=== PATIENT | female | born 1975 | race Caucasian/White ===

== ENCOUNTER → 2022-04-02 12:45 | Outpatient (BNVA) | payer OTHER, SELFPAY | PROVIDERS: PCP Internal Medicine; Visit Provider Physician Assistant Surgical | DX: Z13.89 Encounter for screening for other disorder (principal) ==

== ENCOUNTER → 2022-04-04 12:49 | Outpatient (BNVA) | payer OTHER, SELFPAY | PROVIDERS: PCP Internal Medicine; Visit Provider Physician Assistant Surgical | DX: E66.9 Obesity, unspecified (principal); E11.9 Type 2 diabetes mellitus without complications; Z68.37 Body mass index [BMI] 37.0-37.9, adult | CPT/HCPCS: 99202 ==

== ENCOUNTER → 2022-05-01 10:02 | Outpatient (BNVA) | payer OTHER, SELFPAY | PROVIDERS: PCP Internal Medicine; Visit Provider Physician Assistant Surgical | DX: E66.9 Obesity, unspecified (principal); Z68.36 Body mass index [BMI] 36.0-36.9, adult | CPT/HCPCS: 99212 ==

== ENCOUNTER → 2022-05-17 11:25 | Outpatient (BNVA) | payer OTHER, SELFPAY | PROVIDERS: PCP Internal Medicine; Visit Provider Dietitian, Registered | DX: E66.9 Obesity, unspecified (principal); Z98.84 Bariatric surgery status; Z71.3 Dietary counseling and surveillance | CPT/HCPCS: 97802 ==

== ENCOUNTER 2022-05-27 09:07 | Outpatient (REF) | payer OTHER, SELFPAY ==
--- NOTE | ~2022-05-27 | US_ITS ---
EXAMINATION: US COMPLETE ABDOMEN WITH LIVER ELASTOGRAPHY CLINICAL INFORMATION: COMPARISON: None. TECHNIQUE: Real-time imaging of the abdominal viscera. Noninvasive ultrasound liver fibrosis assessment is performed using Petrona ElastPQ point quantification shear wave elastography (2D-SWE) with a C5-2 MHz transducer. Multiple elastography samples are obtained. FINDINGS: PANCREAS: Not well visualized due to bowel gas ABDOMINAL AORTA: The proximal abdominal aorta is not well visualized due to bowel gas. The middle, and distal aortic segments are normal in caliber. INFERIOR VENA CAVA: Normal. LIVER: Normal. The liver demonstrates normal size, contour and echogenicity. No focal lesion or intrahepatic biliary duct dilatation. The right lobe measures 15.4 cm in length. The left lobe measures 9.6 cm in length. Portal flow is normal/hepatopedal Shear wave liver elastography median stiffness is 1.2 m/s (reference: normal median stiffness is 1.3 m/s or less). IQR/median stiffness to assess sampling precision is 0.11 (reference: good quality data set is IQR/median stiffness of 0.15 or less). GALLBLADDER: Normal. The gallbladder is physiologically distended without evidence of stones, sludge, polyps, wall thickening or pericholecystic fluid. COMMON BILE DUCT: Normal in caliber measuring 0.3 cm in diameter. RIGHT KIDNEY: Normal. No hydronephrosis. No renal calculi or focal parenchymal lesions. The kidney measures 10.5 cm in maximum dimension. LEFT KIDNEY: Normal. No hydronephrosis. No renal calculi or focal parenchymal lesions. The kidney measures 10.5 cm in maximum dimension. SPLEEN: Normal. The spleen measures 8.4 cm in maximum dimension. FREE FLUID: None. US/US abdomen comp w elastography IMPRESSION: 1. Impression: Normal-appearing liver. Limited visualization of the pancreas and proximal abdominal aorta. Otherwise unremarkable exam. 2. Liver elastography: Adequate liver sampling. Normal liver stiffness. REFERENCE: Society of Radiologists in Ultrasound Liver Stiffness Thresholds (2020): LIVER STIFFNESS THRESHOLDS: *Liver Stiffness equal or less than 1.3 m/s: High probability of being normal. *Liver Stiffness less than 1.7 m/s: In the absence of other known clinical signs, rules out compensated advanced chronic liver disease. *Liver Stiffness 1.7-2.1 m/s: Suggestive of compensated advanced chronic liver disease but need further test for confirmation. *Liver Stiffness over 2.1 m/s: Rules in compensated advanced chronic liver disease. *Liver Stiffness over 2.4 m/s: Suggestive of clinically significant portal hypertension. QUALITY OF DATA SET: *IQR/Median value equal or less than 0.15 implies a quality data set. *IQR/Median value over 0.15 implies a poor quality data set. SIGNIFICANT CHANGE FROM PRIOR EXAM: Significant change if liver stiffness measurement is 10% or greater from prior exam. OTHER CONSIDERATIONS: The stage of liver fibrosis may be overestimated in the setting of acute hepatitis, liver inflammation, elevated liver function tests, hepatic vascular congestion, obstructive cholestasis, non-fasting state, and infiltrative diseases such as amyloidosis and lymphoma. In some patients with NAFLD, the liver stiffness thresholds for compensated advanced chronic liver disease may be lower. In causes other than viral hepatitis and NAFLD, liver stiffness thresholds are not well established.
== END 2022-05-27 09:08 | disposition home or self-care (01) ==
LOC: HO.US 09:07
PROVIDERS: Visit Provider Physician Assistant Surgical
DX: Z01.818 Encounter for other preprocedural examination (principal); E66.9 Obesity, unspecified; E11.9 Type 2 diabetes mellitus without complications; K21.9 Gastro-esophageal reflux disease without esophagitis
CPT/HCPCS: 76705; 76981

== ENCOUNTER → 2022-06-26 13:20 | Outpatient (BNVA) | payer OTHER, SELFPAY | PROVIDERS: PCP Internal Medicine; Visit Provider Dietitian, Registered | DX: E66.9 Obesity, unspecified (principal); Z68.35 Body mass index [BMI] 35.0-35.9, adult; Z98.84 Bariatric surgery status; Z71.3 Dietary counseling and surveillance | CPT/HCPCS: 97803 ==

== ENCOUNTER → 2022-07-23 14:22 | Outpatient (BNVA) | payer OTHER, SELFPAY | PROVIDERS: PCP Internal Medicine; Visit Provider Dietitian, Registered | DX: E66.9 Obesity, unspecified (principal) | CPT/HCPCS: 97803 ==

== ENCOUNTER 2022-07-26 09:28 | Outpatient (REF) | payer OTHER, SELFPAY ==
--- NOTE | ~2022-07-26 | XR_ITS ---
EXAMINATION: XR CHEST CLINICAL INFORMATION: Type 2 diabetes mellitus. COMPARISON: None TECHNIQUE: 2 views of the chest were obtained. FINDINGS: No significant abnormality is noted involving the heart, lungs, mediastinum, bony thorax or soft tissues. XR/XR chest 2V IMPRESSION: No acute cardiopulmonary process.
[2022-07-26 09:48] LABS: MANUAL DIFF FLAG NO
[2022-07-26 10:50] LABS: Basophils Percent Auto 0.5 % (0-2); Eosinophils Percent Auto 0.5 % (0-4); Hematocrit 38.6 % (37.0-47.0); Hemoglobin 12.8 g/dl (12.0-16.0); Imm Gran Abs Auto 0.01 X10*3/uL (0.00-0.03); Imm Gran Pct Auto 0.3 % (0.0-0.4); Lymphocytes Absolute Auto 1.2 X10*3/uL (1.2-4.9); Mean Corpuscular HGB Conc 33.2 g/dl (31.0-35.0); Mean Corpuscular Hemoglobin 25.8 pg (27.0-33.0); Mean Corpuscular Volume 77.8 fL (80.0-98.0); Mean Platelet Volume 9.3 fL (9.4-12.3); Monocytes Absolute Auto 0.3 X10*3/uL (0.1-1.2); Monocytes Percent Auto 7.7 % (2-11); Neutrophils Absolute Auto 2.4 x10*3/uL (2.0-8.3); Platelet Count 411 X10*3/uL (160-400); Red Blood Count 4.96 X10*6/uL (4.20-5.50); Red Cell Distribution Width 13.8 % (11.0-16.0); White Blood Count 3.9 X10*3/uL (4.8-10.8)
[2022-07-26 10:59] LABS: Estimated Average Glucose 123 mg/dL; Hemoglobin A1C 142.2697 umol/L; Hemoglobin A1c % 5.9 %
[2022-07-26 11:18] LABS: Alanine Aminotransferase 11 U/L (0-31); Albumin Level 4.1 g/dL (3.5-5.0); Alkaline Phosphatase 72 U/L (39-117); Anion Gap 15 (12-20); Aspartate Amino Transferase 11 U/L (5-31); Bilirubin Total 0.5 mg/dL (0.0-1.0); Blood Urea Nitrogen 13 mg/dL (9-16); C Reactive Protein 0.88 mg/dL (< or = 0.50); Calcium 8.9 mg/dL (8.4-10.2); Carbon Dioxide 23 mmol/L (22-29); Chloride 105 mmol/L (96-108); Cholesterol 180 mg/dL; Estimated Glomerular Filt Rate > 60; Glucose Random 125 mg/dL (60-115); HDL Cholesterol 47 mg/dL; Iron 72 mcg/dL (30-160); LDL Cholesterol Calculated 111 mg/dl; Percent Iron Saturation 19 % (15-50); Potassium 4.5 mmol/L (3.3-5.1); Sodium 138 mmol/L (135-145); Total Iron Binding Capacity 380 mcg/dL (228-428); Total Protein 7.4 g/dL (6.5-8.0); Triglycerides 111 mg/dL; Unsaturated Iron Binding 308 ug/dL
[2022-07-26 11:42] LABS: Ferritin 41 ng/mL (10-250); Insulin 63 uU/mL (2-29); Vitamin D 25-OH Total 25.2 ng/mL (>30)
[2022-07-26 11:49] LABS: Folate 6.7 ng/mL (> or = 4.0); Vitamin B12 334 pg/mL (200-900)
[2022-07-28 13:17] LABS: PTHI 52 pg/mL (16-77)
[2022-07-30 19:06] LABS: Vitamin A 33 mcg/dL (38-98)
[2022-07-31 00:51] LABS: Zinc 62 mcg/dL (60-130)
[2022-08-01 15:17] LABS: Vitamin B1 9 nmol/L (8-30)
== END 2022-07-26 09:29 | disposition home or self-care (01) ==
LOC: HO.LAB 09:28
PROVIDERS: Visit Provider Physician Assistant Surgical
DX: E11.9 Type 2 diabetes mellitus without complications (principal); E66.9 Obesity, unspecified
CPT/HCPCS: 36415; 71046; 80053; 80061; 82306; 82607; 82728; 82746; 83036; 83525; 83540; 83970; 84425; 84443; 84590; 84630; 85025; 86140

== ENCOUNTER 2022-08-07 08:58 | Outpatient (REF) | payer OTHER, SELFPAY ==
--- NOTE | ~2022-08-07 | FL_ITS ---
EXAMINATION: XR FLUOROSCOPY UPPER GI WITH AIR CLINICAL INFORMATION: Type 2 diabetes mellitus without complications. COMPARISON: None TECHNIQUE: Routine upper GI exam was performed in upright and lying position. FINDINGS: Following oral administration of thick barium and effervescent granules there is normal propagation bolus from the oral cavity through the pharynx, esophagus into stomach without any evidence of obstruction, narrowing or stricture. On placing patient supine and prone lying the course, caliber and peristalsis of this stomach, duodenal bulb and the sweep is normal. The mucosal pattern of the stomach and the duodenum is normal. There is mild gastroesophageal reflux into the midesophagus without hiatal hernia. FLUOROSCOPY TIME: 2.1 minutes DOSE AREA PRODUCT: 33.770 uGy-m2 (microgray-meter squared) FL/FL upper GI w air IMPRESSION: Mild gastroesophageal reflux without hiatal hernia. Rest of the upper GI exam is unremarkable.
== END 2022-08-07 08:59 | disposition home or self-care (01) ==
LOC: HO.XRAY 08:58
PROVIDERS: Visit Provider Physician Assistant Surgical
DX: E11.9 Type 2 diabetes mellitus without complications (principal); E66.9 Obesity, unspecified
CPT/HCPCS: 74246

== ENCOUNTER → 2022-08-23 08:23 | Outpatient (BNVA) | payer OTHER, SELFPAY | PROVIDERS: PCP Internal Medicine; Visit Provider Physician Assistant Surgical | DX: E66.9 Obesity, unspecified (principal); Z68.36 Body mass index [BMI] 36.0-36.9, adult | CPT/HCPCS: 99212 ==

== ENCOUNTER → 2022-09-13 10:32 | Outpatient (REF) | payer OTHER, SELFPAY ==
--- NOTE | 2022-09-13 10:37 | ECG_ITS ---
Test Reason : type 2 dm Blood Pressure : / mmHG Vent. Rate : 085 BPM Atrial Rate : 085 BPM P-R Int : 134 ms QRS Dur : 078 ms QT Int : 356 ms P-R-T Axes : 063 045 025 degrees QTc Int : 423 ms Normal sinus rhythm Normal ECG No previous ECGs available Referred By: Keenan Bhardwaj Electronically Signed By:DESTINY RIVERA MD
== END ==
LOC: HO.CARD 10:32
PROVIDERS: PCP Internal Medicine; Visit Provider Physician Assistant Surgical
DX: E66.9 Obesity, unspecified (principal); E11.9 Type 2 diabetes mellitus without complications
CPT/HCPCS: 93005; 99211

== ENCOUNTER 2022-09-13 12:51 | Outpatient (REF) | payer OTHER, SELFPAY ==
[2022-09-15 11:34] LABS: H Pylori Breath Test Positive (Negative)
== END 2022-09-13 12:52 | disposition home or self-care (01) ==
LOC: HO.LNP 12:51
PROVIDERS: Visit Provider Physician Assistant Surgical
DX: E11.9 Type 2 diabetes mellitus without complications (principal); E66.9 Obesity, unspecified
CPT/HCPCS: 83013

== ENCOUNTER → 2022-09-20 08:41 | Outpatient (BNVA) | payer OTHER, SELFPAY | PROVIDERS: PCP Internal Medicine; Visit Provider Physician Assistant Surgical | DX: E66.9 Obesity, unspecified (principal); A04.8 Other specified bacterial intestinal infections | CPT/HCPCS: 99212 ==

== ENCOUNTER → 2023-03-05 12:50 | Outpatient (BNVA) | payer OTHER, SELFPAY | PROVIDERS: PCP Internal Medicine; Visit Provider Physician Assistant Surgical | DX: E66.9 Obesity, unspecified (principal); R10.811 Right upper quadrant abdominal tenderness; A04.8 Other specified bacterial intestinal infections; E11.9 Type 2 diabetes mellitus without complications; Z68.37 Body mass index [BMI] 37.0-37.9, adult; Z90.3 Acquired absence of stomach [part of] | CPT/HCPCS: 99212 ==

== ENCOUNTER 2023-03-12 14:47 | Outpatient (REF) | payer OTHER, SELFPAY ==
--- NOTE | ~2023-03-12 | US_ITS ---
EXAMINATION: US ABDOMEN COMPLETE CLINICAL INFORMATION: Obesity. COMPARISON: Previous exam May 2022 TECHNIQUE: Real-time imaging of the abdominal viscera. FINDINGS: PANCREAS: Not well visualized due to bowel gas ABDOMINAL AORTA: The proximal, mid, and distal segments are normal in caliber. INFERIOR VENA CAVA: Visualized portions are normal. LIVER: Normal. The liver is normal in size. The liver contour is normal. Parenchymal echogenicity is normal. No focal hepatic lesion. There is no intrahepatic biliary duct dilatation seen. GALLBLADDER: Normal. The gallbladder is physiologically distended without evidence of stones, sludge, polyps, wall thickening or pericholecystic fluid. COMMON BILE DUCT: Normal in caliber measuring 0.3 cm in diameter. RIGHT KIDNEY: Normal. No hydronephrosis. No renal calculi or focal parenchymal lesions. The kidney measures 8.7 cm in maximum dimension. LEFT KIDNEY: Normal. No hydronephrosis. No renal calculi or focal parenchymal lesions. The kidney measures 9.6 cm in maximum dimension. SPLEEN: Normal. The spleen measures 8.7 cm in maximum dimension. FREE FLUID: None. US/US abdomen complete IMPRESSION: Limited visualization of the pancreas otherwise unremarkable exam.
[2023-03-12 15:01] LABS: MANUAL DIFF FLAG NO
[2023-03-12 16:57] LABS: Basophils Percent Auto 0.6 % (0-2); Eosinophils Percent Auto 0.6 % (0-4); Hematocrit 39.5 % (37.0-47.0); Lymphocytes Absolute Auto 1.5 X10*3/uL (1.2-4.9); Lymphocytes Percent Auto 49.2 % (20-40); Mean Corpuscular HGB Conc 32.9 g/dl (31.0-35.0); Mean Corpuscular Hemoglobin 25.3 pg (27.0-33.0); Mean Corpuscular Volume 76.8 fL (80.0-98.0); Mean Platelet Volume 9.6 fL (9.4-12.3); Monocytes Absolute Auto 0.3 X10*3/uL (0.1-1.2); Monocytes Percent Auto 10.3 % (2-11); Neutrophils Absolute Auto 1.2 x10*3/uL (2.0-8.3); Neutrophils Percent Auto 39.3 % (45-73); Platelet Count 361 X10*3/uL (160-400); Red Blood Count 5.14 X10*6/uL (4.20-5.50); Red Cell Distribution Width 14.2 % (11.0-16.0); White Blood Count 3.1 X10*3/uL (4.8-10.8)
[2023-03-12 17:09] LABS: Estimated Average Glucose 128 mg/dL; Hemoglobin A1c % 6.1 %
[2023-03-12 17:50] LABS: Alanine Aminotransferase 26 U/L (0-31); Albumin Level 4.4 g/dL (3.5-5.0); Alkaline Phosphatase 69 U/L (39-117); Anion Gap 15 (12-20); Aspartate Amino Transferase 21 U/L (5-31); Bilirubin Total 0.5 mg/dL (0.0-1.0); Blood Urea Nitrogen 10 mg/dL (9-16); Calcium 9.5 mg/dL (8.4-10.2); Carbon Dioxide 25 mmol/L (22-29); Chloride 105 mmol/L (96-108); Cholesterol 158 mg/dL; Estimated Glomerular Filt Rate > 60; Glucose Random 89 mg/dL (60-115); HDL Cholesterol 39 mg/dL; Iron 84 mcg/dL (30-160); LDL Cholesterol Calculated 101 mg/dl; Percent Iron Saturation 25 % (15-50); Potassium 3.9 mmol/L (3.3-5.1); Sodium 141 mmol/L (135-145); Total Iron Binding Capacity 340 mcg/dL (228-428); Total Protein 7.4 g/dL (6.5-8.0); Triglycerides 93 mg/dL; Unsaturated Iron Binding 256 ug/dL
[2023-03-12 18:25] LABS: Ferritin 27 ng/mL (10-250); Folate 10.2 ng/mL (> or = 4.0); TSH reflex Free T4 0.38 uIU/mL (0.32-4.0); Vitamin B12 499 pg/mL (200-900)
[2023-03-12 18:39] LABS: Insulin 10 uU/mL (2-29); Vitamin D 25-OH Total 21.2 ng/mL (>30)
[2023-03-14 14:58] LABS: Calcium (PTHI) 9.7 mg/dL (8.6-10.2); PTHI 77 pg/mL (16-77)
[2023-03-15 03:23] LABS: Zinc 79 mcg/dL (60-130)
[2023-03-19 00:04] LABS: Vitamin A 28 mcg/dL (38-98)
[2023-03-20 05:48] LABS: Vitamin B1 <6 nmol/L (8-30)
== END 2023-03-12 14:48 | disposition home or self-care (01) ==
LOC: HO.US 14:47
PROVIDERS: PCP Internal Medicine; Visit Provider Physician Assistant Surgical
DX: E11.9 Type 2 diabetes mellitus without complications (principal); E66.9 Obesity, unspecified; R10.84 Generalized abdominal pain; A04.8 Other specified bacterial intestinal infections
CPT/HCPCS: 36415; 76700; 80053; 80061; 82306; 82607; 82728; 82746; 83036; 83525; 83540; 83970; 84425; 84443; 84590; 84630; 85025; 86140

== ENCOUNTER → 2023-03-13 10:30 | Outpatient (BNVA) | payer OTHER, SELFPAY | PROVIDERS: PCP Internal Medicine; Referring Provider Physician Assistant Surgical; Visit Provider Counselor Mental Health ==

== ENCOUNTER → 2023-03-20 08:50 | Outpatient (BNVA) | payer OTHER, SELFPAY | PROVIDERS: PCP Internal Medicine; Visit Provider Physician Assistant Surgical | DX: Z11.0 Encounter for screening for intestinal infectious diseases (principal) | CPT/HCPCS: 99211 ==

== ENCOUNTER 2023-03-20 15:28 | Outpatient (REF) | payer OTHER, SELFPAY ==
[2023-03-21 11:27] LABS: H Pylori Breath Test Positive (Negative)
== END 2023-03-20 15:29 | disposition home or self-care (01) ==
LOC: HO.LNP 15:28
PROVIDERS: Visit Provider Physician Assistant Surgical
DX: E11.9 Type 2 diabetes mellitus without complications (principal); A04.8 Other specified bacterial intestinal infections; E66.9 Obesity, unspecified
CPT/HCPCS: 83013

== ENCOUNTER → 2023-03-25 13:36 | Outpatient (BNVA) | payer OTHER, SELFPAY | PROVIDERS: PCP Internal Medicine; Referring Provider Physician Assistant Surgical; Visit Provider Dietitian, Registered | DX: E66.9 Obesity, unspecified (principal) | CPT/HCPCS: 97802 ==

== ENCOUNTER → 2023-04-09 14:58 | Outpatient (BNVA) | payer OTHER, SELFPAY | PROVIDERS: Visit Provider Physician Assistant Surgical | DX: E66.9 Obesity, unspecified (principal); Z68.35 Body mass index [BMI] 35.0-35.9, adult | CPT/HCPCS: 99212 ==

== ENCOUNTER → 2023-04-22 13:23 | Outpatient (BNVA) | payer OTHER, SELFPAY | PROVIDERS: Visit Provider Physician Assistant Surgical | DX: E66.9 Obesity, unspecified (principal); Z11.0 Encounter for screening for intestinal infectious diseases; Z71.3 Dietary counseling and surveillance | CPT/HCPCS: 97803; 99211 ==

== ENCOUNTER 2023-04-22 18:33 | Outpatient (REF) | payer OTHER, SELFPAY ==
[2023-04-24 13:54] LABS: H Pylori Breath Test Negative (Negative)
== END 2023-04-22 18:34 | disposition home or self-care (01) ==
LOC: HO.LNP 18:33
PROVIDERS: Visit Provider Physician Assistant Surgical
DX: Z01.818 Encounter for other preprocedural examination (principal); Z11.0 Encounter for screening for intestinal infectious diseases
CPT/HCPCS: 83013

== ENCOUNTER → 2023-05-05 08:06 | Outpatient (BNVA) | payer OTHER, SELFPAY | PROVIDERS: Visit Provider Surgery ==

== ENCOUNTER 2023-05-20 06:12 | Day surgery (SDC) | payer OTHER, SELFPAY ==
[2023-05-15 11:42] VITALS: BMI 34.9
--- NOTE | 2023-05-17 14:15 | P.HPSUR_ITS ---
Pre-Procedural Eval Section A Date of Service: 05/17/23 The patient is an INPATIENT: No The History & Physical has been completed within 30 days and I have reviewed it.: Yes Section B Chief Complaint: GERD Relevant Family History (Specify if Yes): No Relevant Social History: None Present Medications: None Medical History: No relevant PMH History of Previous Operations: Relevant previous surgery/procedure and date(s) (Laparoscopic sleeve gastrectomy) Allergies: Allergies Allergy/AdvReac Type Severity Reaction Status Date / Time No Known Allergies Allergy Verified 05/05/23 11:19 Review of Systems Sugical H&P ROS: Negative: Constitution, Cardiovascular, Respiratory, Neurological, Psychiatric, Hem-Onc, Allergic/Immunologic, Gastrointestinal, Genitourinary, Musculoskeletal, Integumentary, Endocrine and Ey es/Ears/Nose/Throat Exam Surgical H&P Exam: Normal: HEENT, Normal: Heart, Normal: Lungs, Normal: Extremities, Normal: Abdomen, Normal: Skin and Normal: Neurological Plan Diagnosis/Plan: Unchanged (EGD to assess for esphagitis. Risks for perforation and bleeding were discussed with patient. She is in agreement with the plan) I have reviewed the history and physical and performed a pertinent physical examination on my patient. No changes have occurred unless specified. Time Spent With Patient Time: Total time managing care of this patient today ____ minutes.
--- NOTE | 2023-05-19 10:04 | P.CONAN_ITS ---
Documented by User: Helena Beyer NP 05/19/23 10:05 HPI - Anesthesia Eval Consult details Narrative: 47yo F for Upper Endoscopy PMFSH Active Problems Active Problems: All Active Problems (Updated 05/15/23 @ 11:43 by Jen Singh RN) Diabetes (Acute) GERD (gastroesophageal reflux disease) (Acute) Depression (Acute) Obesity (BMI 30-39.9) (Acute) H. pylori infection (Acute) RUQ abdominal tenderness (Acute) BMI 35.0-35.9,adult (Acute) Sleep apnea (Acute) Non-insulin dependent type 2 diabetes mellitus (Acute) Past Medical History Medical History (Updated 05/15/23 @ 11:43 by Jen Singh RN) Depression GERD (gastroesophageal reflux disease) Non-insulin dependent type 2 diabetes mellitus Sleep apnea Family History Family History Mother Renal failure Diabetes Hypertension Father No problems noted. Brother Asthma Surgical History Surgical History Hx of cervical spine surgery Hx of section Hx of hysterectomy S/P abdominoplasty S/P laparoscopic sleeve gastrectomy Social History Social History Alcohol intake: former Patient Tobacco Use Status: Never used Tobacco Second Hand Smoke Exposure: No Meds Allergies Allergy/AdvReac Type Severity Reaction Status Date / Time No Known Allergies Allergy Verified 05/05/23 11:19 Home Medications Medication Instructions Recorded Confirmed Last Taken Type metformin 500 mg tablet 500 mg PO DAILY 04/02/22 05/15/23 Unknown History omeprazole 10 mg capsule,delayed 20 mg PO DAILY 04/09/23 05/15/23 Unknown History release Exam Exam Date and Time: May 19, 2023 1004 Height,Weight and Vital Signs: Height 4 ft 10 in Weight 75.75 kg Assessment and Plan Assessment Anesthesia Assessment: Chart Reviewed Documented by User: Luis Eller MD 05/20/23 17:56 [facility] Past Medical History Medical History (Updated 05/15/23 @ 11:43 by Jen Singh RN) Depression GERD (gastroesophageal reflux disease) Non-insulin dependent type 2 diabetes mellitus Sleep apnea Functional capacity: independent ambulation Family History Family History Mother Renal failure Diabetes Hypertension Father No problems noted. Brother Asthma Family history of problems with anesthesia: No Surgical History Surgical History Hx of cervical spine surgery Hx of section Hx of hysterectomy S/P abdominoplasty S/P laparoscopic sleeve gastrectomy History of Problems with Anesthesia: No Social History Social History Alcohol intake: former Patient Tobacco Use Status: Never used Tobacco Second Hand Smoke Exposure: No Meds Allergies Allergy/AdvReac Type Severity Reaction Status Date / Time No Known Allergies Allergy Verified 05/05/23 11:19 Home Medications Medication Instructions Recorded Confirmed Last Taken Type metformin 500 mg tablet 500 mg PO DAILY 04/02/22 05/15/23 Unknown History omeprazole 10 mg capsule,delayed 20 mg PO DAILY 04/09/23 05/15/23 Unknown History release Exam Airway Mallampati Class: IV Neck ROM: Full Loose/Missing/Broken Teeth: Yes Assessment and Plan Assessment Anesthesia Assessment: Anesthesia Plan Discussed Final Anesthetic Review Family History of Problems with Anesthesia: No History of Problems with Anesthesia: No NPO: Yes ASA Class: II Final Preanesthetic Review: Meds/Allgs Chart Reviewed, Consent Obtained/Reviewed and Anes Risks/Benef Reviewed Patient Risk: Intermediate Procedure Risk: Intermediate Anesthetic Plan Anesthetic Plan: MAC: Disposition: Standard PACU
[2023-05-19 12:37] LABS: COVID-19 Test Negative (Negative); IDNOW Serial# 08D9AD1C
[2023-05-20 06:53] LABS: Glucose, Whole Blood 105 mg/dL (60-115)
[2023-05-20] MEDS: Lactated Ringers 1,000 ML 80 ML IVCONT (06:56)
[2023-05-20 07:55] VITALS: BP 113/69; PULSE 71; RESP 17; TEMP 36.5; O2SAT 100
--- NOTE | 2023-05-20 08:10 | PM.OP ---
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 1) redundant gastric pouch, 2) mild stricture incisura angularis PROCEDURE: [id number] with biopsies Surgeon: ?Lenin Fitch M.D.. Ph.D. Ground Crewman Mission Support: None ? Anesthesia: IV sedation Estimated blood loss: ?Minimal FINDINGS AND PROCEDURE: ? OPERATIVE INDICATIONS: ?The patient is a 47 year old female known to me who underwent a laparoscopic sleeve gastrectomy elsewhere. The patient had inadequate weight loss so far.?In addition, the patient has been complaining of significant GERD. Based on this information I recommended an upper endoscopy to evaluate the patient's symptoms. Risks and complications of the surgery were discussed with the patient in advance particularly the possibility of perforation or bleeding that may require surgical intervention. The patient understood the risks and was in agreement with the plan. ? PROCEDURE: After informed consent was obtained by the patient, the patient was ?transferred to the Operating Room and was placed in the supine position.? After successful induction of IV sedation, a mouth block was inserted and the patient was placed in the left lateral decubitus position. An upper endoscopy was performed next, the oropharynx and esophagus appeared within the normal limits. There was no small hiatal hernia. The z-line was slightly irregular. Two biopsies were obtained from the distal esohagus 2-3 cm proximal to the GE junction and two additional biopsies from the GE junction. The sleeve was entered. There was moderate redundancy of the proximal sleeve. The remaining sleeve caliber was somewhat dilated but of even caliber until the incisura angularis where there was some mild narrowing and a twist. The scope required some negotiation to get through but the caliber of this area is larger than the caliber of the scope but the area appears twisted and of significantly reduced caliber than the proximal sleeve.. There was mild gastritis at distal antrum. There was no stricture or ulcer. Biopsies were obtained from the proximal sleeve as well as the distal antrum. No significant bleeding was noted from any of the biopsy sites. The scope was then advanced into the duodenum which appeared to be normal as well. At that point the duodenum ?and the sleeve were decompressed and the scope was withdrawn from the patient's mouth. The patient extubated and was transferred in stable condition to the Recovery Room for further care. I was present and performed all steps of the procedure. There were no residents to assist with this case. Lenin Fitch M.D., Ph.D. Surgeon: Brian Fitch MD Anesthesia: MAC Was an Ground Crewman Mission Support used for this Procedure?: No Estimated blood loss (mL): 0 IV fluids (mL): 400 Urine output (mL): 0 (No Valadez to record output) Pathology: other (1) antrum x1, 2) proximal sleeve/gastric fundus x1, 3) EGJ x2, 4) distal esophagus x2) Condition: stable Disposition: PACU
[2023-05-20 08:18] VITALS: BP 123/80; PULSE 71; RESP 18; TEMP 36.5; O2SAT 99
== END 2023-05-20 09:04 | disposition home or self-care (01) ==
PROVIDERS: Physician Assistant Surgical; PCP Internal Medicine; Visit Provider Surgery
PROC: 0DJ08ZZ Inspection of Upper Intestinal Tract, Via Natural or Artificial Opening Endoscopic (ICD-10-PCS; CPT 43235; principal; 2023-05-20 07:30)
DX: K21.9 Gastro-esophageal reflux disease without esophagitis (principal); K95.89 Other complications of other bariatric procedure; K31.2 Hourglass stricture and stenosis of stomach; K29.60 Other gastritis without bleeding; Z98.84 Bariatric surgery status; G47.30 Sleep apnea, unspecified; Z90.3 Acquired absence of stomach [part of]; E11.9 Type 2 diabetes mellitus without complications; Z79.84 Long term (current) use of oral hypoglycemic drugs; Z79.899 Other long term (current) drug therapy; Z98.890 Other specified postprocedural states; E66.9 Obesity, unspecified; Z20.822 Contact with and (suspected) exposure to COVID-19
CPT/HCPCS: 43239; 82947; 87635; 88305; 88342

== ENCOUNTER 2023-06-13 11:59 | Outpatient (AMB) | payer OTHER, SELFPAY ==
--- NOTE | 2023-06-13 11:41 | MHC.OFFVISWM ---
Intake VS Expanded 06/13/23 11:50 Height 4 ft 10 in Weight 169 lb BMI 35.3 Intake Visit Reasons: VIDEO [facility] F/U Coding Quality Analyst Required: Yes Coding Quality Analyst Name: office cmi Allergies No Known Allergies Allergy (Verified 05/05/23 11:19) Medication List - Last Reconciled 06/13/23 by JOLENE Alonso metformin 500 mg PO DAILY omeprazole 20 mg PO DAILY thiamine HCl (vitamin B1) 100 mg PO DAILY vitamin A palmitate 10,000 units PO DAILY HPI HPI Comments History of Present Illness Details 47 yo female returns to [facility] clinic for pre-op care Weight today: 169 pounds with a BMI of 35.3 weight loss since initial appt on 03/25/23, 11.4 pounds TBWL % 6.3 She states she was on 3 vacations and was not able to follow her meal plan. She just returned from her last vacation yesterday Dagmar plan: 2 Orgain shakes ([employer], [employer], [employer], [employer]) First shake (1 scoops in 8 oz low fat unsweetened almond milk each) at 9am-11am Second shake (1 scoop in 8 oz unsweetened almond milk) at 1pm-3pm Dinner at 430pm (6 forks of protein and 6 forks of salad/vegetables). 1 protein bar ([employer] Perfect bars at [employer], [employer], or [employer]) at 630pm-830pm. Exercise plan: walking in the morning, 500 calories, 6 days per week.? Treadmill or outside [facility] Medical History (Updated 05/15/23 @ 11:43 by Jen Singh RN) Depression GERD (gastroesophageal reflux disease) Non-insulin dependent type 2 diabetes mellitus Sleep apnea Surgical History Hx of cervical spine surgery Hx of section Hx of hysterectomy S/P abdominoplasty S/P laparoscopic sleeve gastrectomy Family History Mother Renal failure Diabetes Hypertension Father No problems noted. Brother Asthma Social History Alcohol intake: former Patient Tobacco Use Status: Never used Tobacco Second Hand Smoke Exposure: No Assessment & Plan Assessment & Plan (1) Obesity (BMI 30-39.9): Code(s): E66.9 - Obesity, unspecified Plan: She has returned from her 3 vacations and now back on track. She was reminded of upcoming appts. She is going to work very hard over the next three weeks. She was able to accurately report her meal plan and goal of 500 calories at the gym daily. Telehealth Telehealth Location of provider rendering services: practice address Location of patient: other Patient Identification confirmed using: Name, : Yes Telehealth method: video Patient verbally consented to treatment: Yes Patient verbally consented to billing insurance company: Yes Patient informed of any privacy concerns related to visit: Yes Minutes spent on Phone/Video with Pt.: 12 Coding Level of Care Code Tele Est Pt Level 3 (06835) Diagnoses Obesity (BMI 30-39.9) E66.9 Time Spent (min) 20
[2023-06-13 11:50] VITALS: BMI 35.3
== END 2023-06-13 12:01 | disposition home or self-care (01) ==
LOC: HO.HBS 11:59
PROVIDERS: PCP Internal Medicine; Visit Provider Physician Assistant Surgical
DX: E66.9 Obesity, unspecified (principal); Z68.35 Body mass index [BMI] 35.0-35.9, adult
CPT/HCPCS: 99213

== ENCOUNTER → 2023-06-13 11:59 | Outpatient (BNVA) | payer OTHER, SELFPAY | PROVIDERS: PCP Internal Medicine; Visit Provider Physician Assistant Surgical ==

== ENCOUNTER 2023-07-07 07:52 | Outpatient (AMB) | payer OTHER, SELFPAY ==
--- NOTE | 2023-07-07 12:56 | MHC.OFFVISWM ---
Intake VS Expanded 07/07/23 13:02 Height 4 ft 10 in Weight 169 lb 8 oz BMI 35.4 Intake Visit Reasons: TV Follow Up SWL *HIGHER EDUCATION ADMINISTRATOR* Allergies No Known Allergies Allergy (Verified 07/07/23 13:04) Medication List - Last Reconciled 07/07/23 by Brian Fitch MD metformin 500 mg PO DAILY omeprazole 20 mg PO DAILY thiamine HCl (vitamin B1) 100 mg PO DAILY vitamin A palmitate 10,000 units PO DAILY HPI TV Follow Up SWL *HIGHER EDUCATION ADMINISTRATOR* HPI Details Start time: 12.30pm, End time: 1.20pm ?I spent 45 minutes speaking with the patient on the phone plus an additional 5 minutes reviewing and updating records for a total of 50 minutes HPI Comments History of Present Illness Details Overall weight loss: 7.2lbs, or 4.07% TBWL Is doing 2 Orgain protein shakes (1 scoop each in 8oz almond milk), 2 Pure protein bars and one meal (6 forks of protein and 6 forks of salad or vegetables) Exercise: Gym x7/wk doing treadmill for 400-500 calories per work-out [facility] Medical History (Updated 07/07/23 @ 13:09 by Brian Fitch MD) Depression GERD (gastroesophageal reflux disease) Non-insulin dependent type 2 diabetes mellitus Obstructive sleep apnea on CPAP Sleep apnea Surgical History Hx of cervical spine surgery Hx of section Hx of hysterectomy S/P abdominoplasty S/P laparoscopic sleeve gastrectomy Family History Mother Renal failure Diabetes Hypertension Father No problems noted. Brother Asthma Social History Alcohol intake: former Patient Tobacco Use Status: Never used Tobacco Second Hand Smoke Exposure: No Assessment & Plan Assessment & Plan (1) Obesity (BMI 30-39.9): Code(s): E66.9 - Obesity, unspecified Plan: 1. Plan for sleeve gastrectomy revision 2. Change nutritional plan to 2 Orgain protein shakes (HALF scoop each in 8oz almond milk) at 8am-10am and 11am-1pm, 1 Pure protein bar at 2pm-4pm, one meal at 5pm (6 forks of protein and 6 forks of salad or vegetables) and one Pure protein bar at 7pm-9pm 3. Exercise: Continue Gym x7/wk doing treadmill for 400-500 calories per work-out 4. Send me weight measurements weekly on Mondays (2) Obstructive sleep apnea on CPAP: Code(s): G47.33 - Obstructive sleep apnea (adult) (pediatric) (3) Non-insulin dependent type 2 diabetes mellitus: Code(s): E11.9 - Type 2 diabetes mellitus without complications (4) GERD (gastroesophageal reflux disease): Code(s): K21.9 - Gastro-esophageal reflux disease without esophagitis (5) BMI 35.0-35.9,adult: Code(s): Z68.35 - Body mass index [BMI] 35.0-35.9, adult Telehealth Telehealth Location of provider rendering services: practice address Location of patient: address on file Patient Identification confirmed using: Name, : Yes Telehealth method: voice only Patient verbally consented to treatment: Yes Patient verbally consented to billing insurance company: Yes Patient informed of any privacy concerns related to visit: Yes Minutes spent on Phone/Video with Pt.: 50 Coding Level of Care Code Tele Est Pt Level 5 (21027) Diagnoses Obesity (BMI 30-39.9) E66.9 Obstructive sleep apnea on CPAP G47.33 Non-insulin dependent type 2 diabetes mellitus E11.9 GERD (gastroesophageal reflux disease) K21.9 BMI 35.0-35.9,adult Z68.35 Time Spent (min) 50
[2023-07-07 13:02] VITALS: BMI 35.4
== END 2023-07-07 13:20 | disposition home or self-care (01) ==
LOC: HO.HBS 07:52
PROVIDERS: PCP Internal Medicine; Visit Provider Surgery
DX: E66.9 Obesity, unspecified (principal); Z68.35 Body mass index [BMI] 35.0-35.9, adult
CPT/HCPCS: 99215

== ENCOUNTER → 2023-07-07 07:52 | Outpatient (BNVA) | payer OTHER, SELFPAY | PROVIDERS: PCP Internal Medicine; Visit Provider Surgery ==

== ENCOUNTER 2023-08-25 08:10 | Outpatient (AMB) | payer OTHER, SELFPAY ==
--- NOTE | 2023-08-25 11:33 | A.OFFVIS_ITS ---
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* HPI Details Start time: 11.24am, End time: 11.54am ?I spent 25 minutes speaking with the patient on the phone plus an additional 5 minutes reviewing and updating records for a total of 30 minutes HPI Comments History of Present Illness Details Overall weight loss: 4.2lbs, or 2.37% TBWL Is doing a Orgain protein shake (one scoop in almond milk), a Pure protein bar, 2pm (6 forks of protein and 6 forks of salad or vegetables), another protein shake and dinner (6 forks of meat and 6 forks of salad or vegetables) Exercise: treadmill for 400 calories 6-7 days per week PFSH Medical History (Updated 08/25/23 @ 11:33 by Brian Fitch MD) Obstructive sleep apnea on CPAP Depression GERD (gastroesophageal reflux disease) Sleep apnea Non-insulin dependent type 2 diabetes mellitus Surgical History S/P abdominoplasty S/P laparoscopic sleeve gastrectomy Hx of cervical spine surgery Hx of hysterectomy Hx of section Family History Mother Renal failure Diabetes Hypertension Father No problems noted. Brother Asthma Social History Alcohol intake: former Patient Tobacco Use Status: Never used Tobacco Second Hand Smoke Exposure: No Assessment & Plan Assessment & Plan (1) Obesity (BMI 30-39.9): Code(s): E66.9 - Obesity, unspecified Plan: 1. Plan for sleeve gastrectomy revision 2. Change nutritional plan to 2 Orgain protein shakes (HALF scoop each in 8oz almond milk) at 8am-10am and 11am-1pm, 1 Pure protein bar at 2pm-4pm, one meal at 5pm (6 forks of protein and 6 forks of salad or vegetables) and one Pure protein bar at 7pm-9pm 3. Exercise: Continue Gym x7/wk doing treadmill for 400-500 calories per work- out 4. Send me weight measurements weekly on Mondays (2) BMI 37.0-37.9, adult: Code(s): Z68.37 - Body mass index [BMI] 37.0-37.9, adult Telehealth Telehealth Location of provider rendering services: practice address Location of patient: address on file Patient Identification confirmed using: Name, : Yes Telehealth method: voice only Patient verbally consented to treatment: Yes Patient verbally consented to billing insurance company: Yes Patient informed of any privacy concerns related to visit: Yes Minutes spent on Phone/Video with Pt.: 30 Coding Level of Care Code Tele Est Pt Level 4 (72812) Diagnoses Obesity (BMI 30-39.9) E66.9 BMI 37.0-37.9, adult Z68.37 Time Spent (min) 30
[2023-08-25 11:37] VITALS: BMI 36.0
== END 2023-08-25 11:56 | disposition home or self-care (01) ==
LOC: HO.HBS 08:10
PROVIDERS: PCP Internal Medicine; Visit Provider Surgery
DX: E66.9 Obesity, unspecified (principal); Z68.37 Body mass index [BMI] 37.0-37.9, adult
CPT/HCPCS: 99214

== ENCOUNTER → 2023-08-25 08:10 | Outpatient (BNVA) | payer OTHER, SELFPAY | PROVIDERS: PCP Internal Medicine; Visit Provider Surgery ==

== ENCOUNTER 2023-09-19 07:49 | Outpatient (AMB) | payer OTHER, SELFPAY ==
--- NOTE | 2023-09-19 11:15 | MHC.OFFVISWM ---
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 Normally she goes to the Gym 6 days per week doing treadmill for 400-500 calories (incline: up to 9, speed: 3.1) [facility] Medical History (Updated 08/25/23 @ 11:33 by Brian Fitch MD) Obstructive sleep apnea on CPAP Depression GERD (gastroesophageal reflux disease) Sleep apnea Non-insulin dependent type 2 diabetes mellitus Surgical History S/P abdominoplasty S/P laparoscopic sleeve gastrectomy Hx of cervical spine surgery Hx of hysterectomy Hx of section Family History Mother Renal failure Diabetes Hypertension Father No problems noted. Brother Asthma Social History Alcohol intake: former Patient Tobacco Use Status: Never used Tobacco Second Hand Smoke Exposure: No Assessment & Plan Assessment & Plan (1) Obesity (BMI 30-39.9): Code(s): E66.9 - Obesity, unspecified Plan: 1. Plan for sleeve gastrectomy revision. All tests has been completed and reviewed and the patient is cleared for the surgery. ?If diaphragmatic or ventral hernias are present at time of surgery, these will be repaired laparoscopically as well. Risks and complications were discussed in detail including possible conversion to an open procedure, anastomotic leak, bleeding requiring transfusion, small bowel obstruction, , DVT and pulmonary embolism, cardiac, or pulmonary complications, as assisted complications such as anastomotic ulcer, insufficient weight loss and vitamin deficiencies. I emphasized the importance of close follow-up, adherence to instructions and good communication. So far she has proven to be an excellent communicator and very compliant with all our directions accomplishing a great weight loss. I believe that she is an excellent candidate and she is ready. 2.Please stop the Pure protein bars and replace them with the Celebrate bars that you can buy from the hospital's gift shop. 3. So the nutritional plan includes now: 2 Orgain protein shakes (HALF scoop each in 8oz almond milk) at 8am-10am and 11am-1pm, 1 Celebrate protein bar at 2pm-4pm, one meal at 5pm (6 forks of protein and 6 forks of salad or vegetables) and one Celebrate protein bar at 7pm-9pm 3. Exercise: Continue Gym x7/wk doing treadmill for 400-500 calories per work-out 4. Send me weight measurements weekly on Fridays (2) BMI 37.0-37.9, adult: Code(s): Z68.37 - Body mass index [BMI] 37.0-37.9, adult (3) Obstructive sleep apnea on CPAP: Code(s): G47.33 - Obstructive sleep apnea (adult) (pediatric) (4) GERD (gastroesophageal reflux disease): Code(s): K21.9 - Gastro-esophageal reflux disease without esophagitis Telehealth Telehealth Location of provider rendering services: practice address Location of patient: address on file Patient Identification confirmed using: Name, : Yes Telehealth method: voice only Patient verbally consented to treatment: Yes Patient verbally consented to billing insurance company: Yes Patient informed of any privacy concerns related to visit: Yes Minutes spent on Phone/Video with Pt.: 27 Coding Level of Care Code Tele Est Pt Level 3 (49348) Diagnoses Obesity (BMI 30-39.9) E66.9 BMI 37.0-37.9, adult Z68.37 Obstructive sleep apnea on CPAP G47.33 GERD (gastroesophageal reflux disease) K21.9 Time Spent (min) 27 Comment With a Bengali speaking certified court/medical interpreter
[2023-09-19 11:19] VITALS: BMI 35.4
== END 2023-09-19 11:38 | disposition home or self-care (01) ==
LOC: HO.HBS 07:49
PROVIDERS: PCP Internal Medicine; Visit Provider Surgery
DX: E66.9 Obesity, unspecified (principal); Z68.37 Body mass index [BMI] 37.0-37.9, adult; G47.33 Obstructive sleep apnea (adult) (pediatric); K21.9 Gastro-esophageal reflux disease without esophagitis
CPT/HCPCS: 99213

== ENCOUNTER → 2023-09-19 07:49 | Outpatient (BNVA) | payer OTHER, SELFPAY | PROVIDERS: PCP Internal Medicine; Visit Provider Surgery ==

== ENCOUNTER 2024-02-06 10:54 | Outpatient (AMB) | payer OTHER, SELFPAY ==
--- NOTE | 2024-02-06 10:57 | A.OFFVIS_ITS ---
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* Allergies No Known Allergies Allergy (Verified 02/06/24 11:04) HPI HPI Comments History of Present Illness Details Overall weight loss: 9.8lbs, or 5.54% TBWL Is doing 2 Orgain shakes with 1/2 scoop each in 8oz almond milk, 2 Zone Perfect protein bars and one meal (6 forks each) Exercise: treadmill 6 days per week for 400 calories PFSH Medical History (Updated 08/25/23 @ 11:33 by Brian Fitch MD) Obstructive sleep apnea on CPAP Depression GERD (gastroesophageal reflux disease) Sleep apnea Non-insulin dependent type 2 diabetes mellitus Surgical History S/P abdominoplasty S/P laparoscopic sleeve gastrectomy Hx of cervical spine surgery Hx of hysterectomy Hx of section Family History Mother Renal failure Diabetes Hypertension Father No problems noted. Brother Asthma Social History Alcohol intake: former Patient Tobacco Use Status: Never used Tobacco Second Hand Smoke Exposure: No Physical Exam Vital Signs: Last Vital Signs Temp 97.5 F 02/06/24 11:08 Pulse 92 02/06/24 11:08 BP 157/83 H 02/06/24 11:08 Pulse Ox 99 02/06/24 11:08 Oxygen Delivery Method Room Air 02/06/24 11:08 BMI result Body Mass Index 34.9 GI Inspection: Yes normal to inspection, Yes incision (well healed) and Yes obesity Palpation (GI): Firmness to palpation present (GI) Extrem Right lower extremity: normal to inspection Left lower extremity: normal to inspection Assessment & Plan Assessment & Plan (1) Obesity (BMI 30-39.9): Code(s): E66.9 - Obesity, unspecified Plan: 1. Plan for lap sleeve gastrectomy including upper GI endoscopy. All tests has been completed and reviewed and the patient is cleared for the surgery. ?If diaphragmatic or ventral hernias are present at time of surgery, these will be repaired laparoscopically as well. 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 I emphasized the importance of close follow-up, adherence to instructions and good communication. So far she has proven to be an excellent communicator and very compliant with all our directions accomplishing a great weight loss. I believe that she is an excellent candidate and she is ready. 2. Preop prescriptions were provided and explained the purpose of each one. Need to be purchased preop. Start Pantoprazole now as you get it from the pharmacy, 1 pill per day. Sucralfate and Zofran are for after surgery as needed. 3. Bowel prep: please do 7 packets ?of Miralax mixing each one with a an 8oz glass of water, crystal light, gatorade zero, or propel ?on 02/15/24 and the same amount on 02/16/24. The Miralax you begin with one packet at a time in 8oz water or crystal light, gatorade zero, or propel ?as early in the day as you can and you do them back to back until you finish them. Continue the protein shakes during? the bowel prep. 4. Needs to purchase 1oz medicine cups . 5. Needs to purchase Children's liquid Tylenol for postop pain control. 6. Avoid aspirin, motrin, Advil, Aleve, Ibuprofen, Naproxyn. Tylenol is OK. 7. She needs to purchase the Celebrate 4:1 protein shakes from the hospital's gift shop. 8. Will do basic preop blood work-up any day between Friday02/09/24 and Friday02/13/24 fasting for 12 hours and is scheduled to see the Anesthesiologist prior to the day of surgery. 9. Importance of adherence to postop folllow-up and recommendations was underscored and she understands that. 10. Stop food and bars as of tomorrow 02/07/24 and continue with 5 Orgain protein shakes (ONE scoop EACH in 8oz almond milk) at 9am-11am, 12pm-2pm, 3pm-5pm, 6pm- 8pm and one more at 8pm-10pm 11. No soups, broths or V8 12. The patient's?medical?history has been reviewed and they are considered low risk for post op DVT and therefore DVT prophylaxis is not considered necessary. Travel after surgery was reviewed. The patient has not disclosed any travel plans during the first 30 days after surgery and they have been advised that within the first 30 days after surgery any bus, plane, train or car travel over 2 hours in duration is contraindicated due to the possibility of developing blood clots from immobility. Any travel, needs to include periods of ambulation of 10 minutes in duration every 2 hours.? Patient was instructed to discuss any plans for travel during this period with their bariatric surgeon.? 13. Please take at the day of surgery the following medications: NONE 14. Stop any control pills and don't use them for one month after surgery 15. Absolutely no smoking or vaping, or marijuana until the surgery and for at least the first 4 weeks. Only nicotine patches are allowed. 16. Send me weight measurements on Friday02/13/24 and then on Friday02/17/24 the day of surgery before you go to the hospital. 17. Avoid any steroids by mouth for any reason. Let me know if someone prescribes them to you 18. These instructions supersede anything else you read in the handbook, anything you watched in videos or classes or you were told by any other provider. If there is any conflict, you follow the above instructions and nothing else. Orders: Orders Comprehensive Met. Panel Today E11.9 - Type 2 diabetes mellitus without complications, E66.9 - Obesity, unspecified Vitamin A Today E11.9 - Type 2 diabetes mellitus without complications, E66.9 - Obesity, unspecified Hemoglobin A1c Today E11.9 - Type 2 diabetes mellitus without complications, E66.9 - Obesity, unspecified Vitamin B1 Today E11.9 - Type 2 diabetes mellitus without complications, E66.9 - Obesity, unspecified Type and Screen Today E11.9 - Type 2 diabetes mellitus without complications, E66.9 - Obesity, unspecified Vitamin B12 Today E11.9 - Type 2 diabetes mellitus without complications, E66.9 - Obesity, unspecified C Reactive Protein Today E11.9 - Type 2 diabetes mellitus without complications, E66.9 - Obesity, unspecified Partial Thromboplastin Time Today E11.9 - Type 2 diabetes mellitus without complications, E66.9 - Obesity, unspecified Vitamin D 25-OH Total Today E11.9 - Type 2 diabetes mellitus without complications, E66.9 - Obesity, unspecified Zinc Today E11.9 - Type 2 diabetes mellitus without complications, E66.9 - Obesity, unspecified TSH reflex Free T4 Today E11.9 - Type 2 diabetes mellitus without complications, E66.9 - Obesity, unspecified Prothrombin Time INR Today E11.9 - Type 2 diabetes mellitus without complications, E66.9 - Obesity, unspecified Lipid Panel Today E11.9 - Type 2 diabetes mellitus without complications, E66.9 - Obesity, unspecified Complete Blood Count Auto Diff Today E11.9 - Type 2 diabetes mellitus without complications, E66.9 - Obesity, unspecified Ferritin Today E11.9 - Type 2 diabetes mellitus without complications, E66.9 - Obesity, unspecified IRON PROFILE Today E11.9 - Type 2 diabetes mellitus without complications, E66.9 - Obesity, unspecified Medications: New sucralfate 10 mL PO BID 600 mL 2RF K21.9 - Gastro-esophageal reflux disease without esophagitis polyethylene glycol 3350 (Miralax) Mix each packet with 8oz of water, Crystal light, or Gatorade zero, or Propel and do 7 packets on 02/15/24 and another 7 packets on 24 17 grams PO DAILY 14 ea 0RF Z01.818 - Encounter for other preprocedural examination pantoprazole 40 mg PO DAILY 90 tabs 0RF K21.9 - Gastro-esophageal reflux disease without esophagitis ondansetron Only take one every 12 hours as needed if you have nausea 4 mg PO Q12H 20 tabs 0RF nausea and vomiting R11.0 - Nausea Coding Level of Care Code Est Pt Level 4 (09341) Diagnoses Obesity (BMI 30-39.9) E66.9 Time Spent (min) 45 Comment with a Latvian speaking interpeter
[2024-02-06 11:08] VITALS: BP 157/83; PULSE 92; TEMP 36.4; O2SAT 99; BMI 34.9
== END 2024-02-06 12:52 | disposition home or self-care (01) ==
PROVIDERS: PCP Internal Medicine; Visit Provider Surgery
DX: E66.9 Obesity, unspecified (principal); Z68.34 Body mass index [BMI] 34.0-34.9, adult; Z90.3 Acquired absence of stomach [part of]; Z98.84 Bariatric surgery status
CPT/HCPCS: 99214

== ENCOUNTER → 2024-02-06 10:54 | Outpatient (BNVA) | payer OTHER, SELFPAY | PROVIDERS: PCP Internal Medicine; Visit Provider Surgery | DX: E66.9 Obesity, unspecified (principal); Z68.34 Body mass index [BMI] 34.0-34.9, adult | CPT/HCPCS: 99212 ==

== ENCOUNTER 2024-02-17 06:18 | Inpatient (IN) | payer OTHER, SELFPAY ==
[2024-02-11 11:49] LABS: Basophils Percent Auto 0.9 % (0-2); Eosinophils Percent Auto 0.9 % (0-4); Hematocrit 39.4 % (37.0-47.0); Hemoglobin 13.4 g/dl (12.0-16.0); Imm Gran Abs Auto 0.01 X10*3/uL (0.00-0.03); Imm Gran Pct Auto 0.4 % (0.0-0.4); Lymphocytes Percent Auto 46.4 % (20-40); MANUAL DIFF FLAG SCAN; Mean Corpuscular Hemoglobin 26.4 pg (27.0-33.0); Mean Corpuscular Volume 77.7 fL (80.0-98.0); Mean Platelet Volume 9.5 fL (9.4-12.3); Monocytes Absolute Auto 0.2 X10*3/uL (0.1-1.2); Monocytes Percent Auto 9.4 % (2-11); Neutrophils Absolute Auto 0.9 x10*3/uL (2.0-8.3); Platelet Count 372 X10*3/uL (160-400); Red Blood Count 5.07 X10*6/uL (4.20-5.50); Red Cell Distribution Width 13.5 % (11.0-16.0); SCAN SMEAR FLAG 1
[2024-02-11 11:50] LABS: White Blood Count 2.2 X10*3/uL (4.8-10.8)
[2024-02-11 11:51] LABS: INTERNATIONAL NORM RATIO 1.1 (0.9-1.1); Prothrombin Time 12.8 SEC (11.1-13.3)
[2024-02-11 11:54] LABS: Partial Thromboplastin Time 30.1 SEC (26.0-36.8)
[2024-02-11 12:46] LABS: Alanine Aminotransferase 14 U/L (0-31); Albumin Level 4.3 g/dL (3.5-5.0); Alkaline Phosphatase 61 U/L (39-117); Anion Gap 10 (12-20); Aspartate Amino Transferase 15 U/L (5-31); Bilirubin Total 0.5 mg/dL (0.0-1.0); Blood Urea Nitrogen 10 mg/dL (9-16); C Reactive Protein 0.43 mg/dL (< or = 0.50); Calcium 9.6 mg/dL (8.4-10.2); Carbon Dioxide 28 mmol/L (22-29); Chloride 106 mmol/L (96-108); Cholesterol 173 mg/dL (<200); Estimated Glomerular Filt Rate > 60; Ferritin 46 ng/mL (10-250); Glucose Random 111 mg/dL (60-115); HDL Cholesterol 41 mg/dL (>40); Iron 83 mcg/dL (30-160); LDL Cholesterol Calculated 116 mg/dL (<100); Percent Iron Saturation 25 % (15-50); Potassium 3.9 mmol/L (3.3-5.1); Sodium 140 mmol/L (135-145); TSH reflex Free T4 0.94 uIU/mL (0.32-4.0); Total Iron Binding Capacity 336 mcg/dL (228-428); Total Protein 7.8 g/dL (6.5-8.0); Triglycerides 80 mg/dL (<150); Unsaturated Iron Binding 253 ug/dL; Vitamin D 25-OH Total 28.8 ng/mL (>30)
[2024-02-11 12:54] LABS: SLIDE REVIEW VERIFIED
[2024-02-11 14:48] LABS: Vitamin B12 406 pg/mL (200-900)
[2024-02-11 14:56] LABS: Estimated Average Glucose 123 mg/dL; Hemoglobin A1c % 5.9 % (<6.0)
[2024-02-12 14:20] VITALS: BMI 34.9
[2024-02-14 04:13] LABS: Zinc 71 mcg/dL (60-130)
[2024-02-16 04:39] LABS: Vitamin A 32 mcg/dL (38-98)
--- NOTE | 2024-02-16 10:10 | HO.ANESPROP2 ---
Documented by User: Helena Beyer NP 02/16/24 10:11 HPI - Anesthesia Eval Consult details Narrative: 48yo F for Revision Sleeve Gastrectomy-EGD, possible diaphragmatic hernia, possible ventral hernia, possible open PMFSH Active Problems Active Problems: All Active Problems (Updated 02/12/24 @ 14:23 by Aubree Renteria RN) BMI 37.0-37.9, adult (Acute) BMI 35.0-35.9,adult (Acute) RUQ abdominal tenderness (Acute) H. pylori infection (Acute) Obesity (BMI 30-39.9) (Acute) Depression (Acute) GERD (gastroesophageal reflux disease) (Acute) Diabetes (Acute) Obstructive sleep apnea on CPAP (Acute) Sleep apnea (Acute) Non-insulin dependent type 2 diabetes mellitus (Acute) Past Medical History Medical History Obstructive sleep apnea on CPAP Depression GERD (gastroesophageal reflux disease) Sleep apnea Non-insulin dependent type 2 diabetes mellitus Family History Family History Mother Renal failure Diabetes Hypertension Father No problems noted. Brother Asthma Family history of problems with anesthesia: No Surgical History Surgical History S/P abdominoplasty S/P laparoscopic sleeve gastrectomy Hx of cervical spine surgery Hx of hysterectomy Hx of section History of Problems with Anesthesia: No Social History Social History Household Members Other:: son Are you a primary healthcare administration intern to a significant other at home: No Do you presently have visiting nurse or other home services: No Alcohol intake: former Patient Tobacco Use Status: Never used Tobacco Second Hand Smoke Exposure: No Use of substances other than those prescribed or required for medical reasons: No Have you been hit, kicked, punched, or otherwise hurt by someone within the past year? If so, by whom?: No Are you DNR?: No Advance Directives: No Advance Directives Information Provided: Yes Advance Directives on File: No Recently lost weight without trying: No Nutrition Risks: No Nutritional Risk Patient : No Meds Allergies Allergy/AdvReac Type Severity Reaction Status Date / Time No Known Allergies Allergy Verified 02/12/24 14:23 Home Medications Medication Instructions Recorded Confirmed Last Taken Type metformin 500 mg tablet 500 mg PO DAILY 04/02/22 02/12/24 02/16/24 History omeprazole 10 mg capsule,delayed 20 mg PO DAILY 04/09/23 02/17/24 02/16/24 History release thiamine HCl (vitamin B1) 100 mg 100 mg PO DAILY 02/12/24 02/12/24 02/16/24 History tablet (Vitamin B-1) vitamin A 3,000 mcg (10,000 unit) 1 cap PO DAILY 02/12/24 02/12/24 02/16/24 History capsule Exam Height,Weight and Vital Signs: Height 4 ft 10 in Weight 75.75 kg Pertinent Lab Results Pertinent Lab Results: Laboratory Tests 02/11/24 02/13/24 10:30 13:17 WBC 2.2 L RBC 5.07 Hgb 13.4 Hct 39.4 MCV 77.7 L MCH 26.4 L MCHC 34.0 RDW 13.5 Plt Count 372 MPV 9.5 Immature Gran % (Auto) 0.4 Neut % (Auto) 42.0 L Lymph % (Auto) 46.4 H Surry % (Auto) 9.4 Eos % (Auto) 0.9 Baso % (Auto) 0.9 Lymph # (Auto) 1.0 L [place]ry # (Auto) 0.2 Eos # (Auto) 0.0 Baso # (Auto) 0.0 Abs Immat Gran (auto) 0.01 Absolute Neuts (auto) 0.9 L Absolute Nucleated RBC 0.000 Nucleated RBC % (auto) 0.0 Smear Tech's Comments VERIFIED Smear Path Review SEE NOTE PT 12.8 INR 1.1 APTT 30.1 Sodium 140 Potassium 3.9 Chloride 106 Carbon Dioxide 28 Anion Gap 10 L BUN 10 Creatinine 0.67 Estim Creat Clear Calc TNP Estimated GFR > 60 Random Glucose 111 Estimat Average Glucose 123 Hemoglobin A1c % 5.9 Calcium 9.6 Iron 83 TIBC 336 % Saturation 25 Unsat Iron Binding 253 Ferritin 46 Total Bilirubin 0.5 AST 15 ALT 14 Alkaline Phosphatase 61 C-Reactive Protein 0.43 Total Protein 7.8 Albumin 4.3 Triglycerides 80 Cholesterol 173 LDL Cholesterol, Calc 116 H HDL Cholesterol 41 Vitamin A 32 L Vitamin B12 406 25-OH Vitamin D Total 28.8 L TSH 0.94 Zinc 71 Blood Type O Positive Antibody Screen NEGATIVE Assessment and Plan Assessment Anesthesia Assessment: Chart Reviewed Final Anesthetic Review Family History of Problems with Anesthesia: No History of Problems with Anesthesia: No Documented by User: Moody Escalona MD 02/17/24 10:39 [facility] Past Medical History Medical History Obstructive sleep apnea on CPAP Depression GERD (gastroesophageal reflux disease) Sleep apnea Non-insulin dependent type 2 diabetes mellitus Family History Family History Mother Renal failure Diabetes Hypertension Father No problems noted. Brother Asthma Surgical History Surgical History S/P abdominoplasty S/P laparoscopic sleeve gastrectomy Hx of cervical spine surgery Hx of hysterectomy Hx of section Social History Social History Household Members Other:: son Are you a primary healthcare administration intern to a significant other at home: No Do you presently have visiting nurse or other home services: No Alcohol intake: former Patient Tobacco Use Status: Never used Tobacco Second Hand Smoke Exposure: No Use of substances other than those prescribed or required for medical reasons: No Have you been hit, kicked, punched, or otherwise hurt by someone within the past year? If so, by whom?: No Are you DNR?: No Advance Directives: No Advance Directives Information Provided: Yes Advance Directives on File: No Recently lost weight without trying: No Nutrition Risks: No Nutritional Risk Patient : No Meds Allergies Allergy/AdvReac Type Severity Reaction Status Date / Time No Known Allergies Allergy Verified 02/12/24 14:23 Home Medications Medication Instructions Recorded Confirmed Last Taken Type metformin 500 mg tablet 500 mg PO DAILY 04/02/22 02/12/24 02/16/24 History omeprazole 10 mg capsule,delayed 20 mg PO DAILY 04/09/23 02/17/2402/15/24 History release thiamine HCl (vitamin B1) 100 mg 100 mg PO DAILY 02/12/24 02/12/24 02/16/24 History tablet (Vitamin B-1) vitamin A 3,000 mcg (10,000 unit) 1 cap PO DAILY 02/12/24 02/12/24 02/16/24 History capsule Exam Airway Mallampati Class: III TM Dist: >3cm Neck ROM: Full Loose/Missing/Broken Teeth: No Heart: [id number] Lungs: cta b/l Assessment and Plan Assessment Anesthesia Assessment: Anesthesia Plan Discussed Final Anesthetic Review NPO: Yes ASA Class: III Final Preanesthetic Review: No Changes in Pt Med Stat, Meds/Allgs Chart Reviewed, Consent Obtained/Reviewed and Anes Risks/Benef Reviewed Patient Risk: Intermediate Procedure Risk: Intermediate Assessment/Block/Sedation in SS: Assess/Block/Sedation-SS Anesthetic Plan Anesthetic Plan: GA Disposition: Standard PACU
[2024-02-17] VITALS (16 sets, daily range): BP systolic 120–147; BP diastolic 62–92; PULSE 69–95; RESP 13–20; TEMP 36.1–36.6; O2SAT 95–100; BMI 35.2; BMI 39.5
--- NOTE | 2024-02-17 06:18 | ECG_ITS ---
Test Reason : pre op Blood Pressure : / mmHG Vent. Rate : 067 BPM Atrial Rate : 067 BPM P-R Int : 152 ms QRS Dur : 092 ms QT Int : 400 ms P-R-T Axes : 066 040 012 degrees QTc Int : 422 ms Normal sinus rhythm Normal ECG When compared with ECG of 13-SEP-2022 10:35, No significant change was found Referred By: Helena Beyer Electronically Signed By:JESSICA GERMAIN
[2024-02-17] MEDS: Lactated Ringers 1,000 ML 999 ML IV (06:28)
[2024-02-17 06:32] LABS: Glucose, Whole Blood 101 mg/dL (60-115)
[2024-02-17] MEDS: Aprepitant 32 MG/4.4 ML VIAL IVPUSH (06:32)
--- NOTE | 2024-02-17 07:42 | P.HPSUR_ITS ---
Pre-Procedural Eval Section A - 24 Hr Update-Section A only Date of Service: 02/17/24 The patient is an INPATIENT: Yes The patient has been examined within 24 hours of the surgical procedure. The History & Physical has been completed within 30 days and I have reviewed it.: Yes Section B - Complete if H&P > 30 days Chief Complaint: Obesity Relevant Family History (Specify if Yes): No Relevant Social History: None Present Medications: None Medical History: No relevant PMH History of Previous Operations: Relevant previous surgery/procedure and date(s) (laparoscopic sleeve gastrectomy) Allergies: Allergies Allergy/AdvReac Type Severity Reaction Status Date / Time No Known Allergies Allergy Verified 02/12/24 14:23 Review of Systems Sugical H&P ROS: Negative: Constitution, Cardiovascular, Respiratory, Neur ological, Psychiatric, Hem-Onc, Allergic/Immunologic, Gastrointestinal, Genitourinary, Musculoskeletal, Integumentary, Endocrine and Eyes/Ears/Nose/Throat Exam Surgical H&P Exam: Normal: HEENT, Normal: Heart, Normal: Lungs, Normal: Extremities, Normal: Abdomen, Normal: Skin and Normal: Neurological Plan Diagnosis/Plan: Unchanged I have reviewed the history and physical and performed a pertinent physical examination on my patient. No changes have occurred unless specified. Time Spent With Patient Time: Total time managing care of this patient today ____ minutes.
--- NOTE | 2024-02-17 07:43 | P.BOP_ITS ---
Brief Operative Note Date of Service: 02/17/24 Pre-op diagnosis: Obesity with comorbidities (see below) Post-op diagnosis: same Procedure: INITIAL PATIENT BMI ON PRESENTATION AT OUR OFFICE: 37.7 kg/m2 LAST BMI BEFORE SURGERY: 37.2 kg/m2 COMORBIDITIES: Sleep apnea, GERD, non-insulin dependent diabetes ?The patient presented to the Weight Management Program with significant obesity that was negatively impacting the patient's comorbidities as listed above.? The program is a phased program with a special focus on preoperative medical weight management to promote substantial weight loss and prepare the patients for the second phase of the program: bariatric surgery. The patient participated in an intensive weekly lifestyle ?intervention and exercise program during which the patient ?has lost between the initial office visit and the last preoperative visit 6.6lbs, or 2.51% of initial actual body weight. It was deemed appropriate for the patient to now have bariatric surgery. In light of the current Covid-19 pandemic and the well documented strong association of obesity and increased risk of worse outcomes if infected with Covid-19 (REFERENCES: https://pubmed.ncbi.nlm.nih.gov/38391354/ ,? htt ps://pubmed.ncbi.nlm.nih.gov/11631386/ ), any delay in undergoing bariatric surgery may lead to the patient's worsening health condition and increased?risk of more severe Covid-19 disease if infected. In addition a recent?study from [facility] published in [employer] on 11/26/2021 ([email or web address]) found that, among patients with obesity, substantial weight loss achieved with surgery was associated with improved outcomes of COVID-19 infection. The findings suggest that obesity can be a modifiable risk factor for the severity of COVID-19 infection. In addition, the patient met the BMI-criteria for bariatric surgery based on the BMI on initial presentation. The patient should not be penalized for achieving such weight loss because ?it is not sustainable long-term without surgical intervention and it was achieved in preparation for bariatric surgery ?under my direction and based on my published research ([email or web address]).pdf and? https://www.soard.org/article/[email or web address](73)81034-X/pdf ) ?that a 10% preoperative weight loss improves long-term weight loss after surgery and reduces perioperative complications.? Insurance carriers such as [facility] have endorsed my recommendations ?and have included in their policies criteria to include a 10% preoperative weight loss requirement. PROCEDURE: Esophago-gastroscopy, laparoscopic repair of incarcerated diaphragmatic hernia, laparoscopic lysis of adhesions, laparoscopic sleeve gastrectomy and laparoscopic gastropexy INDICATIONS: This is a 48 year-old female who was electively scheduled for laparoscopic, possibly open sleeve gastrectomy revision. The patient has a previous sleeve gastrectomy on 02/15/2023 at [facility] with Dr. Bill. Preoperative work-up including an UGI and EGD is suggestive of a very large proximal pouch of retained gastric fundus as well as incomplete distal antral resection. The objective of this operation is to redo the sleeve. The risks and complications of the procedure were discussed with the patient in advance, particularly the possibility of ; pulmonary embolism; staple line leak; bleeding; GERD; cardiac, pulmonary, or renal complications; as well as long-term problems such as insufficient weight loss, vitamin deficiency, strictures, or ulcers. The patient understood all the risks, and was in agreement to proceed with surgery. DESCRIPTION OF PROCEDURE: After informed consent was obtained from the patient, the patient was given preoperative antibiotics, and was transferred to the operating room. After successful induction of general anesthesia, pneumatic compression devices were placed on both lower extremities. An upper endoscopy was performed next. The oropharynx and esophagus appeared to be within normal limits. There was a diaphragmatic hernia present. The stomach was entered. Then after all fluid and air were suctioned and the stomach was fully decompressed, the scope was withdrawn and secured in the mid esophagus. The patient was then prepped and draped in the usual sterile manner, and abdominal access was established at the right upper quadrant with the Candy technique. A 12 mm blunt port was inserted, and the abdomen was insufflated with CO2 to a pressure of 15 mmHg. Under direct visualization, additional ports were placed, specifically two 5 mm Versi-step ports to the left upper quadrant, and a 5 mm Versi-Step port to the right upper quadrant. 1% lidocaine plain was used to infiltrate all port sites as well as all fascia defects. Using the EndoClose suture passer device, I placed a #1 Polysorb tie across the falciform ligament in order to retract it up against the abdominal wall and prevent injury of the ligament with our instruments during the procedure. Following that, the patient was placed in a steep reverse Trendelenburg position. An additional 5 mm port was placed to the right flank for the Mediflex retractor that was used to retract the left lobe of the liver. The gastro-esophageal fat pad was opened with the ultrasonic device (Thunderbeat, Olympus) and the anterior esophagus and hiatus were exposed. The angle of His was opened with the ultrasonic device the fundus of the stomach from any diaphragmatic and splenic attachments. I then opened the gastrocolic ligament between the transverse colon and the greater curvature of the stomach with the ultrasonic device to enter the lesser sac. This was difficult as there were dense adhesions from previous sleeve gastrectomy. The dissection continued all the way to the angle of His until the left rosie was completely dissected at its entirety. The previous surgeon did not dissect adequately posterior leaving short gastric vessels? which resulted in a much larger proximal stomach which was confirmed by preoperative UGI and EGD. These posterior short gastric vessels were ligated as well as other posterior attachments that were not divided originally. This allowed us to mobilize the stomach completely and appreciate the amount of stomach that was inappropriately left unresected at the original operation.? Adhesiolysis took approximately 75 min to complete with a total operative time of 4 hours. There was also an obvious hiatal hernia. I continued dissecting along the hiatus toward the left rosie and the angle of His. I fully mobilized the fat pad that was incarcerated in the hernia. I then continued by dissecting even further into the posterior retro-esophageal space all the way to the angle of His. I continu ed to mobilize the esophagus into the mediastinum circumferentially. Both vagal nerves were seen and preserved. At that point, I was able to have at least 3 to 5 cm of esophagus into the abdomen.? After I completely mobilized the esophagus from both the left and right rosie and I had a good mobilization of the esophagus circumferentially, I closed the hernia defect with three interrupted #0 Surgidac sutures using the Endo Stitch device, two of which was placed posterior and one of which anterior to the esophagus. ? The stomach was then divided transversely with three Endo JACQUELINE-45 purple loads a nd one JACQUELINE-60 purple load using the SIGNIA stapler and loads. Every effort was made that the gastric sleeve had a tubular shape and an even caliber throughout. An endoscopy was performed before each staple fire to ensure that I did not narrow the gastro-esophageal junction. Once the sleeve resection was completed, the staple line of the gastric sleeve was reinforced with Hemoclips. The resected stomach was retrieved without difficulty from the Candy port. A gastropexy was then performed in order to prevent postoperative GERD and partial gastric volvulus. Several interrupted 2.0 Surgidac sutures were placed between the sleeve's staple line and the previously divided greater omentum and gastro-colic ligament using the Endo-Stitch device. ?An upper endoscopy was performed. There was no narrowing at the GE junction. The scope was easily advanced all the way to the pylorus which was clearly visualized. There was no narrowing anywhere and the sleeve's caliber was even throughout. The sleeve's staple line was inspected and there was no evidence of ischemia, bleeding or dehiscence. At that point the gastroscope was withdrawn from the patient?s mouth while we were decompressing the bowel and the stomach from any remaining air. I looked into the lesser sac to see how the sleeve was situating and it was situating well. There was no bleeding from the staple line, spleen, or short gastric vessels. The Mediflex retractor was removed, and the undersurface of the liver was inspected and there was no bleeding. The patient was placed in supine position. I closed the fascial defect of the 12 mm port site with a figure of eight #1 Polysorb suture. Then 30cc Ropivacaine plain with 10 mg of Dexamethasone were used to infiltrate the fascial closure as well as all skin incisions. At this point, the abdomen was deflated, all ports were removed under direct vision, and no bleeding was noted from any of the port sites. The skin incisions were irrigated with saline and were closed with 4-0 absorbable monofilament sutures. Steri-Strips and OpSites were used to cover all incisions. The patient was extubated and was transferred in stable condition to the recovery room for further care. I was present and performed all burnett parts of the procedure. Ms. Erickson was the ice cream freezer assistant. There were no residents to assist with this case. Lenin Fitch MD, PhD, FACS Surgeon: Brian Fitch MD Anesthesia: GETA, local and other (TAP block) Was an It Compliance Analyst used for this Procedure?: No It Compliance Analyst: Cherie Erickson Estimated blood loss (mL): 10 IV fluids (mL): 3,000 Urine output (mL): 150 Pathology: other (Stomach) Condition: stable Disposition: PACU
--- NOTE | 2024-02-17 07:49 | P.PNGS_ITS ---
Subjective Subjective Date of Service: 02/18/24 Interval history: Feels well. Mild incisional pain. She is tolerating phase 1 bariatric diet Physical Exam 2 Vital Signs: Vital Signs: Last Vital Signs Temp 97.8 F 02/17/24 06:19 Pulse 69 02/17/24 06:19 Resp 16 02/17/24 06:19 BP 139/92 H 02/17/24 06:19 Pulse Ox 99 02/17/24 06:19 O2 Del Method Room Air 02/17/24 06:19 BMI result Body Mass Index 35.2 GI: Inspection: Yes normal to inspection, Yes incision (clean, dry and intact) and Yes obesity Palpation (GI): Soft to palpation Extrem: Right lower extremity: normal to inspection (no calf tenderness) L eft lower extremity: normal to inspection (no calf tenderness) Objective Data Active Medications Lactated Ringer's (Lr) 1,000 mls @ 100 mls/hr IVCONT .Q10H JOSE ALEJANDRO Lactated Ringer's (Lr) 1,000 mls @ 999 mls/hr IV .Q1H1M JOSE ALEJANDRO Stop: 02/17/24 08:30 Last Admin: 02/17/24 06:28 Dose: 999 mls/hr Documented By: DONY Labs 02/17/24 11:19 02/18/24 05:52 Labs: Laboratory Results - last 24 hr 02/17/24 06:29 POC Glucose 101 Procedures Date of Service Date of Service: 02/18/24 Progress Note: A&P Assessment and plan (1) Obesity (BMI 30-39.9): Status: Acute Assessment and Plan: s/p laparoscopic sleeve gastrectomy, lysis of adhesions, diaphragmatic hernia repair and gastropexy Doing well Will check am labs and if OK the patient will be discharged home (2) BMI 37.0-37.9, adult: Status: Acute (3) Sleep apnea: Status: Acute (4) Non-insulin dependent type 2 diabetes mellitus: Status: Acute (5) GERD (gastroesophageal reflux disease): Status: Acute (6) Depression: Status: Acute (7) S/P laparoscopic sleeve gastrectomy: Status: Acute (8) Intra-abdominal adhesions: Status: Acute (9) Diaphragmatic hernia: Status: Acute (10) Status post repair of paraesophageal diaphragmatic hernia: Status: Acute Time Spent With Patient Time: Total time managing care of this patient today ____ minutes. Quality Stroke Does the patient have a stroke diagnosis?: No VTE Prior VTE?: No VTE Risk Level:: Surgical - moderate VTE Device Contraindication: N/A - Device Ordered VTE Drug Contraindication: Treatment Not Indicated
--- NOTE | 2024-02-17 11:02 | P.DS_ITS ---
DS: Providers Provider Date of Service: 02/18/24 Date of admission: 02/17/24 06:18 Primary care physician: Wayne Rendon MD DS: Diagnosis Discharge Diagnosis (1) Obesity (BMI 30-39.9): Status: Acute (2) BMI 37.0-37.9, adult: Status: Acute (3) Sleep apnea: Status: Acute (4) Non-insulin dependent type 2 diabetes mellitus: Status: Acute (5) GERD (gastroesophageal reflux disease): Status: Acute (6) Depression: Status: Acute (7) S/P laparoscopic sleeve gastrectomy: Status: Acute (8) Intra-abdominal adhesions: Status: Acute (9) Diaphragmatic hernia: Status: Acute (10) Status post repair of paraesophageal diaphragmatic hernia: Status: Acute DS: Summary Hospital Course Hospital Course: ADMITTING DIAGNOSIS: morbid obesity, GERD, DM, TONY, depression DISCHARGE DIAGNOSIS: same, s/p laparoscopic sleeve gastrectomy and repair diaphragmatic hernia PAST SURGICAL HISTORY: previous sleeve gastrectomy, section x 2, hysterectyomy, spine surgery, abdominoplasty PROCEDURE: upper endoscopy, laparoscopic sleeve gastrectomy and repair of diaphragmatic hernia hernia DISCHARGE SUMMARY: History of Present Illness: The patient is a 48 year-old woman with a BMI of 37.1kg/m2 and associated co- morbidities as described above. The patient had extensive work-up, lost 9.8 lbs preoperatively and was electively scheduled for laparoscopic, possible open sleeve gastrectomy and gastropexy. Risks and complications of the surgery were discussed with the patient in advance, particularly the possibility of , pulmonary embolism, anastomotic leak, bleeding, bowel injury, GERD, cardiac, renal or pulmonary complications. The patient understood all the risks and was in agreement with the surgical plan. Hospital Course: The patient underwent an uneventful laparoscopic sleeve gastrectomy with gastropexy and repair of diaphragmatic hernia on the day of admission. Postoperatively, the patient was transferred to the surgical floor. The patient received IV Acetaminophen and IV dilaudid for pain control. Patient was started on bariatric phase 1 diet POD #0. On postoperative day one, the patient was feeling well without nausea, vomiting, fevers, or tachycardia. The patient had some mild incisional pain and the abdomen was soft. On the morning of postoperative day one, the patient was continued on 1 ounce of water or ice every half hour. During the day, the patient did fairly well, having some incisional pain, but able to ambulate adequately and to tolerate liquids well. Since the patient is doing well, we decided that the patient was ready to be discharged. The patient was given instructions to follow-up with me next week and to call my office for any fever over 101, persistent abdominal pain, nausea, vomiting, GERD, symptoms of DVT such as calf tenderness, or leg swelling, or pulmonary embolism such as chest pain or shortness of breath. The patient was also instructed to drink 40-60 ounces of liquids per day using the 1-ounce cups. The patient had been given prescriptions for Tylenol for pain, Zofran prn for nausea, and pantoprazole and carafate previously. The patient was encouraged to ambulate and use the incentive spirometer. The patient was allowed to shower, but no baths, and encouraged to stay active at home. All of these instructions were given to the patient personally. All questions were answered and the patient understood all instructions, the instructions were also given to the patient in print. Time Attestation Discharge Coordination Time (in mins): 30 minutes Quality: Safe Use of Opioids Does Pt have an Active Cancer Diagnosis on the Problem List?: No Quality: Stroke Does the patient have a stroke diagnosis?: No Physical Exam Vital Signs: Vital Signs: Last Vital Signs Temp 97.8 F 02/17/24 06:19 Pulse 69 02/17/24 06:19 Resp 16 02/17/24 06:19 BP 139/92 H 02/17/24 06:19 Pulse Ox 99 02/17/24 06:19 O2 Del Method Room Air 02/17/24 06:19 BMI result Body Mass Index 35.2 DS: Data Data Completed and Pending Pending studies at discharge: Pending at discharge 02/17/24 10:30 Surgical [PTH] Routine Labs on day of discharge: Laboratory Results - last 24 hr 02/17/24 06:29 POC Glucose 101 Discharge Plan Discharge Anticipated Discharge Date/Time: 02/18/24 10:58 Patient Disposition: Home, Self-Care Discharge Diagnosis: s/p revision sleeve gastrectomy and diaphragmatic hernia repair Referrals: Wayne Rendon MD [Primary Care Provider] - 1 Week Discharge Medications: Continued pantoprazole 40 mg tablet,delayed release (DR/EC) 40 mg PO DAILY Qty: 90 0RF sucralfate 100 mg/mL suspension 10 ml PO BID Qty: 600 2RF ondansetron 4 mg tablet,disintegrating 4 mg PO Q12H Qty: 20 0RF Rx Instructions: Only take one every 12 hours as needed if you have nausea Discontinued thiamine HCl (vitamin B1) [Vitamin B-1] 100 mg tablet 100 mg PO DAILY vitamin A 3,000 mcg (10,000 unit) capsule 1 cap PO DAILY omeprazole 10 mg capsule,delayed release(DR/EC) 20 mg PO DAILY metformin 500 mg tablet 500 mg PO DAILY Discharge Orders: Discharge Order (Routine); Ordered 02/18/24 Ordered By: Brian Fitch Activity on Discharge: No heavy lifting Stand Alone Forms: Patient Portal Discharge page Care Plan Goals: weight loss Health Concerns: obesity Plan of Treatment: No tub baths, sex or returning to work until discussed at first post op appointment. No exercise, alcohol, tobacco or illegal drug use. Continue to use incentive spirometer hourly while awake. Walk in home for 5- 10 minutes every 2 hours during the first week. Continue phase 1 diet today and start phase 2 diet tomorrow morning. Follow all instructions in the bariatric handbook and call with any questions. 1. Please call your doctor or come back to the emergency room should any new symptoms arise. 2. You will receive a courtesy call from [facility] 24-48 hours after discharge. 3. Activity: abstain from alcohol, practice limited stair climbing, no bending, no driving, no exercise, no illicit substances, no lifting, no sex, no tub bath, no work. 4. Diet: continue as discussed with bariatric team.. 5. Dressing Change/Wound Care: Do not change or remove surgical dressings unless they are wet or soiled. 6. Call your doctor if: - Your temperature exceeds 101.5 F - You experience excessive pain or swelling - You have an unexpected reaction to medication - You have excessive bleeding - You experience continued vomiting/nausea - Your incision begins to separate - Your incision shows signs of infection such as increased redness, swelling, excessive pain, heat, or drainage (light blood or clear fluid is normal) 7. General instructions: No lifting greater than 5 lbs for 1 week and not more than 20lbs the next 3?weeks. No driving until seen at the office in 5-7 days after surgery. If you do not move your bowels in the next 2 days, please tell?Dr. Fitch. Please walk around your home every hour or two to prevent blood clots from forming in your legs. You do not need to wake from sleeping to walk. Please sleep in a bed or couch to prevent kinking at the hips and knees. Please take your incentive spirometer (your lung black jack dealer) home with you and use it for the next few days to prevent pneumonia. You may shower, no hot tubs, baths or swimming pools.?Please follow the post op diet instructions you are?given by Dr Jeff lawler? and text me daily at 5-6pm for an update.?If you have any issues or concerns or questions please communicate this to him via text.? The Celebrate shakes have all of the bariatric vitamins you need if you consume these shakes. If you are drinking other protein shakes, you will need to purchase the Celebrate multivitamins and calcium that are available in the hospital gift shop on the first floor of the [facility].??Do not take anything without first discussing with Dr Fitch. Please make sure you are consuming at least 40 ounces of fluids per day starting the?day AFTER your discharge from the hospital. Always drink 1-2 ml per minute using the 5ml?syringe. If you drink faster you may experience?bloating,?gas pain, burping, nausea or heartburn. In that case please slow down your pace and use the syringe to?understand better the?proper?pace and volume of drinking. Do not hesitate to contact the office with any questions at . The patient's medical history has been reviewed and they are considered low risk for post op DVT and therefore DVT prophylaxis is not considered necessary. Travel after surgery was reviewed. The patient has not disclosed any travel plans during the first 30 days after surgery and they have been advised that within the first 30 days after surgery any bus, plane, train or car travel over 2 hours in duration is contraindicated due to the possibility of developing blood clots from immobility. Any travel, needs to include periods of ambulation of 10 minutes in duration every 2 hours. The patient was instructed to discuss any plans for travel during this period with their bariatric surgeon. Assessment: stable, post op revision sleeve gastrectomy and diaphragmatic hernia repair
--- NOTE | 2024-02-17 11:15 | PHA.MEDREC ---
Pharmacy Consult ? Medication Reconciliation Pharmacy has completed the medication reconciliation. Reviewed med rec done by nursing
[2024-02-17 11:27] LABS: Hematocrit 35.3 % (37.0-47.0); Hemoglobin 11.8 g/dl (12.0-16.0)
[2024-02-17] MEDS: fentaNYL citrate/PF 100 MCG/2 ML VIAL 50 MCG IVPUSH (11:35)
[2024-02-17 11:40] LABS: Anion Gap 11 (12-20); Blood Urea Nitrogen 8 mg/dL (9-16); Calcium 8.3 mg/dL (8.4-10.2); Carbon Dioxide 24 mmol/L (22-29); Chloride 107 mmol/L (96-108); Creatinine Clr Calc Pharmacy 94.5; Estimated Glomerular Filt Rate > 60; Glucose Random 148 mg/dL (60-115); Potassium 3.9 mmol/L (3.3-5.1); Sodium 138 mmol/L (135-145)
[2024-02-17] MEDS: Lactated Ringers 1,000 ML 100 ML IVCONT ×2 (12:33→22:08)
[2024-02-17] MEDS: Famotidine/PF 20 MG/2 ML VIAL IVPUSH ×2 (12:36→19:44)
--- NOTE | 2024-02-17 13:53 | PC.NURSE ---
pt instructed on use incentive spirometer voiding post OR and lap sites CDI binder in use
[2024-02-17] MEDS: HYDROmorphone HCl 0.5 MG/0.5 ML SYRINGE 0.25 MG IVPUSH ×2 (14:23→23:56)
[2024-02-17] MEDS: ceFAZolin Sodium/Dextrose,Iso 2 GM/50 ML PIGGYBACK IV (14:24)
[2024-02-17] MEDS: Acetaminophen 1,000 MG/100 ML PIGGYBACK 16.7 MG IV ×2 (16:09→21:12)
[2024-02-17 16:33] LABS: Vitamin B1 118 nmol/L (8-30)
--- NOTE | 2024-02-17 18:07 | PC.NURSE ---
Ambulated in hallway tolerating Phase I diet
[2024-02-17] MEDS: ondansetron HCL 4 MG/2 ML VIAL IVPUSH (19:44)
[2024-02-17] MEDS: 0.9 % Sodium Chloride Flush 3 ML SYRINGE IVFLUSH (19:44)
--- NOTE | 2024-02-17 20:07 | PC.RT ---
Pt refusing Cpap tonight; will call if needed
[2024-02-18] MEDS: Acetaminophen 1,000 MG/100 ML PIGGYBACK 16.7 MG IV (02:55)
[2024-02-18 03:58] VITALS: BP 125/74; PULSE 82; RESP 19; TEMP 36.4; O2SAT 93
[2024-02-18] MEDS: Lactated Ringers 1,000 ML 100 ML IVCONT (06:48)
[2024-02-18] MEDS: Famotidine/PF 20 MG/2 ML VIAL IVPUSH (06:49)
[2024-02-18 06:51] LABS: Hematocrit 36.8 % (37.0-47.0); Hemoglobin 12.6 g/dl (12.0-16.0); Imm Gran Abs Auto 0.03 X10*3/uL (0.00-0.03); Imm Gran Pct Auto 0.4 % (0.0-0.4); Lymphocytes Absolute Auto 0.6 X10*3/uL (1.2-4.9); Lymphocytes Percent Auto 7.1 % (20-40); MANUAL DIFF FLAG SCAN; Mean Corpuscular HGB Conc 34.2 g/dl (31.0-35.0); Mean Corpuscular Hemoglobin 26.2 pg (27.0-33.0); Mean Corpuscular Volume 76.5 fL (80.0-98.0); Mean Platelet Volume 9.2 fL (9.4-12.3); Monocytes Absolute Auto 0.2 X10*3/uL (0.1-1.2); Monocytes Percent Auto 2.3 % (2-11); Neutrophils Absolute Auto 7.6 x10*3/uL (2.0-8.3); Neutrophils Percent Auto 90.2 % (45-73); Platelet Count 323 X10*3/uL (160-400); Red Blood Count 4.81 X10*6/uL (4.20-5.50); Red Cell Distribution Width 13.2 % (11.0-16.0); SCAN SMEAR FLAG 1; White Blood Count 8.4 X10*3/uL (4.8-10.8)
[2024-02-18 07:10] LABS: Anion Gap 13 (12-20); Blood Urea Nitrogen 7 mg/dL (9-16); Carbon Dioxide 25 mmol/L (22-29); Chloride 104 mmol/L (96-108); Estimated Glomerular Filt Rate > 60; Glucose Random 133 mg/dL (60-115); Potassium 3.9 mmol/L (3.3-5.1); Sodium 138 mmol/L (135-145)
[2024-02-18 07:31] LABS: Calcium 9.6 mg/dL (8.4-10.2)
[2024-02-18 07:35] VITALS: BP 151/70; PULSE 69; RESP 16; TEMP 36.2; O2SAT 97
[2024-02-18 08:04] LABS: SLIDE REVIEW VERIFIED
--- NOTE | 2024-02-18 08:37 | MHC.CM.PN ---
EMR REVIEWED, PT S/P LAP SLEEVE GASTRECTOMY, CM MET W/PT WHO REPORTS SHE LIVES W/ADULT DTR, PT IS FULLY INDEP W/ALL CARE, HAS DIABETIC SUPPLIES AND NO OTHER DME AND NO HOME SERVICES, PT'S GOAL AND PLAN FOR DC IS HOME TODAY NO SERVICES W/DTR FOR TRANSPORT. PT VERIFIES PCP ON FILE IS CORRECT AND PT REPORTS HER SON FLAKITO EMANUEL (NUMBER ON FILE) IS HER HCP, COPY HAS BEEN REQUESTED.
--- NOTE | 2024-02-18 12:38 | HO.POSTANES ---
Post Anesthesia Evaluation Post Anesthesia Evaluation Date of Service: 02/18/24 Vital Signs: Vital Signs Temp Pulse Resp BP Pulse Ox O2 Del Method 02/18/24 07:35 97.1 F 69 16 151/70 H 97 Room Air 02/18/24 03:58 97.6 F 82 19 125/74 93 Room Air Anesthesia: General Endotracheal-GETA Mental Status: Awake Pain Control: Satisfactory Nausea/Vomiting: None Hydration: Adequate Anesthesia-Related Issues: No Anes. Related Issues
== END 2024-02-18 10:16 | disposition home or self-care (01) | DRG 403 ==
LOC: HO.SSSA 11:01 → HO.S3 11:11
PROVIDERS: Physician Assistant; Admitting Provider Surgery; PCP Internal Medicine; Visit Provider Surgery
PROC: 0BQT4ZZ Repair Diaphragm, Percutaneous Endoscopic Approach (ICD-10-PCS; principal; 2024-02-17 07:30)
DX: E66.01 Morbid (severe) obesity due to excess calories (principal); K44.0 Diaphragmatic hernia with obstruction, without gangrene; G47.33 Obstructive sleep apnea (adult) (pediatric); E11.9 Type 2 diabetes mellitus without complications; K21.9 Gastro-esophageal reflux disease without esophagitis; Z98.84 Bariatric surgery status; Z68.39 Body mass index [BMI] 39.0-39.9, adult; Z79.899 Other long term (current) drug therapy
CPT/HCPCS: 36415; 80048; 80053; 80061; 82306; 82607; 82728; 82947; 83036; 83540; 84425; 84443; 84590; 84630; 85014; 85018; 85025; 85610; 85730; 86140; 86850; 86900; 86901; 88307; 88342; 93005; A4649; C9145; J0131; J0690; J1100; J1170; J2250; J2405; J2704; J2795; J3010; J7120

== ENCOUNTER → 2024-02-17 06:18 | Outpatient (BNV) | payer OTHER, SELFPAY | PROVIDERS: Admitting Provider Surgery; PCP Internal Medicine; Visit Provider Internal Medicine | DX: Z01.810 Encounter for preprocedural cardiovascular examination (principal) | CPT/HCPCS: 93010 ==

== ENCOUNTER → 2024-02-17 06:18 | Outpatient (BNV) | payer OTHER, SELFPAY | PROVIDERS: Admitting Provider Surgery; PCP Internal Medicine; Visit Provider Surgery | DX: E66.9 Obesity, unspecified (principal); Z68.37 Body mass index [BMI] 37.0-37.9, adult; K66.0 Peritoneal adhesions (postprocedural) (postinfection); K44.0 Diaphragmatic hernia with obstruction, without gangrene | CPT/HCPCS: 43281; 43659; 43775; 99024 ==

== ENCOUNTER 2024-02-24 14:50 | Outpatient (AMB) | payer OTHER, SELFPAY ==
--- NOTE | 2024-02-24 14:59 | A.OFFVIS_ITS ---
Intake VS Expanded 02/24/24 15:10 BP 135/93 H Blood Pressure Location Rt brachial Blood Pressure Position Sitting Pulse 96 Pulse Source Pulse Oximeter Temp 97.7 F Temperature Source Temporal Artery Scan Pulse Oximetry 97 Oxygen Delivery Method Room Air Height 4 ft 10 in Weight 156 lb BMI 32.6 Body Fat % 44.4 Body Fat Mass 69.2 Fat Free Mass 86.6 Visceral Fat Rating 10.0 Body Water % 39.6 Body Water Mass 61.8 Muscle Mass/Score 82.2 Basal Metabolic Rate/Score 1,240 Intake Visit Reasons: (OV) PO LSG 02/17/24 Allergies No Known Allergies Allergy (Verified 02/24/24 15:11) HPI HPI Comments History of Present Illness Details Pleasant 48-year-old female returns to the office today in follow-up. She is approximately 7 days post sleeve gastrectomy with hiatal hernia repair performed on 02/17/2024. She is tolerating 3 celebrate 4 in 1 shakes with 1 scoop each although finds it sometimes difficult to finish the 3rd shake. She is additionally drinking 16 oz of fluids with 8 oz of water an 8 oz of Gatorade. She has not yet moved her bowels although denies nausea or abdominal pain. [facility] Medical History (Updated 02/17/24 @ 10:59 by Brian Fitch MD) Obstructive sleep apnea on CPAP Depression GERD (gastroesophageal reflux disease) Sleep apnea Non-insulin dependent type 2 diabetes mellitus Surgical History (Updated 02/24/24 @ 15:11 by Georgie Marsh CMA) Status post repair of paraesophageal diaphragmatic hernia S/P abdominoplasty S/P laparoscopic sleeve gastrectomy Hx of cervical spine surgery Hx of hysterectomy Hx of section Family History Mother Renal failure Diabetes Hypertension Father No problems noted. Brother Asthma Social History Household Members: Children Household Members Other:: son Housing: House Are you a primary direct care staffer to a significant other at home: No Do you presently have visiting nurse or other home services: No Alcohol intake: former Patient Tobacco Use Status: Never used Tobacco Second Hand Smoke Exposure: No service: No Physical Exam Vital Signs: Last Vital Signs Temp 97.7 F 02/24/24 15:10 Pulse 96 02/24/24 15:10 BP 135/93 H 02/24/24 15:10 Pulse Ox 97 02/24/24 15:10 Oxygen Delivery Method Room Air 02/24/24 15:10 BMI result Body Mass Index 32.6 GI Inspection: Yes incision (Clean, dry, intact.) Assessment & Plan Assessment & Plan (1) Status post repair of paraesophageal diaphragmatic hernia: Code(s): Z98.890 - Other specified postprocedural states; Z87.19 - Personal history of other diseases of the digestive system Plan: POD 7 s/p LSG with hiatal hernia repair on 02/27/[address] Fitch. Weight loss prior to surgery was 13.9 pounds or 7.7 % TBWL. Original weight on 03/05/2023 was 180.4 pounds and op weight was 166.5 pounds. Be sure to text Dr Fitch exactly 1 week after surgery your weight from your home scale so he can adjust your meal plan. Continue meal plan until f/u w Michelle in 2 weeks May shower, no submersion in bath for another week Continue abdominal binder with activity and exercise for the next 2 weeks. Exercise prior to surgery was treadmill and stationary bike, may resume No abdominal exercises for 6 weeks post operatively Will be emailed link to post op video for review Reminded of the pace of drinking, 2 mL per minute, 1 oz/15 min. Rx for colace and milk of magnesia sent Medications: New magnesium hydroxide (Milk of Magnesia) stop once moving bowels regularly 10 mL PO DAILY 355 mL 0RF docusate sodium (Colace) 100 mg PO DAILY 90 caps 0RF 90 days Coding Level of Care Code Global (45548) Diagnoses Status post repair of paraesophageal diaphragmatic hernia Z98.890; Z87.19
[2024-02-24 15:10] VITALS: BP 135/93; PULSE 96; TEMP 36.5; O2SAT 97; BMI 32.6
== END 2024-02-24 16:06 | disposition home or self-care (01) ==
PROVIDERS: PCP Internal Medicine; Visit Provider Physician Assistant Surgical
DX: E66.9 Obesity, unspecified (principal); Z68.32 Body mass index [BMI] 32.0-32.9, adult; Z90.3 Acquired absence of stomach [part of]; Z98.84 Bariatric surgery status
CPT/HCPCS: 99024

== ENCOUNTER → 2024-02-24 14:50 | Outpatient (BNVA) | payer OTHER, SELFPAY | PROVIDERS: PCP Internal Medicine; Visit Provider Physician Assistant Surgical | DX: Z48.815 Encounter for surgical aftercare following surgery on the digestive system (principal); Z71.3 Dietary counseling and surveillance; Z87.19 Personal history of other diseases of the digestive system; Z98.84 Bariatric surgery status; Z98.890 Other specified postprocedural states | CPT/HCPCS: 99212 ==

== ENCOUNTER 2024-03-11 11:18 | Outpatient (AMB) | payer OTHER, SELFPAY ==
--- NOTE | 2024-03-11 11:22 | A.OFFVIS_ITS ---
Intake VS Expanded 03/11/24 11:42 BP 159/67 H Blood Pressure Location Rt brachial Blood Pressure Position Sitting Pulse 73 Pulse Source Pulse Oximeter Temp 97.4 F Temperature Source Temporal Artery Scan Pulse Oximetry 96 Oxygen Delivery Method Room Air Height 4 ft 10 in Weight 149 lb 12.8 oz BMI 31.3 Body Fat % 40.6 Body Fat Mass 60.8 Fat Free Mass 88.8 Visceral Fat Rating 9.0 Body Water % 42.3 Body Water Mass 63.2 Muscle Mass/Score 84.2 Basal Metabolic Rate/Score 1,251 Intake Visit Reasons: (OV) PO LSG 02/17/24 Allergies No Known Allergies Allergy (Verified 02/24/24 15:11) Medication List - Last Reconciled 03/11/24 by JOLENE Price docusate sodium (Colace) 100 mg PO DAILY 90 days magnesium hydroxide (Milk of Magnesia) 10 mL PO DAILY ondansetron 4 mg PO Q12H pantoprazole 40 mg PO DAILY sucralfate 10 mL PO BID HPI HPI Comments History of Present Illness Details This?is a?48?yo female who is s/p LSG 02/17/2024. Presents for 3 week post op visit. 6.2lb weight loss since last visit 2 weeks ago.? No complaints of nausea, emesis, abdominal pain or reflux, or constipation. Present meal plan includes: 8-10am Celebrate shake with 1 scoop in 8 oz UAM 11am-1pm same shake 2-4pm- bar- pt reports Pure or Celebrate brand 5-8pm- bar Pt reports difficulty finishing bars, sometimes only can finish 3 bites of bar before she feels full, but reports hunger between 1-2pm. Drinking water and Gatorade Zero. Exercise routine includes: treadmill 5x/week for 350 calories [facility] Medical History (Updated 03/03/24 @ 00:02 by Background Daemon) BMI 37.0-37.9, adult BMI 35.0-35.9,adult RUQ abdominal tenderness H. pylori infection Diabetes Obstructive sleep apnea on CPAP Depression GERD (gastroesophageal reflux disease) Sleep apnea Non-insulin dependent type 2 diabetes mellitus Surgical History (Updated 03/03/24 @ 00:02 by Background Daemon) Status post repair of paraesophageal diaphragmatic hernia S/P abdominoplasty S/P laparoscopic sleeve gastrectomy Hx of cervical spine surgery Hx of hysterectomy Hx of section Family History Mother Renal failure Diabetes Hypertension Father No problems noted. Brother Asthma Social History Household Members: Children Household Members Other:: son Housing: House Are you a primary client care representative to a significant other at home: No Do you presently have visiting nurse or other home services: No Alcohol intake: former Patient Tobacco Use Status: Never used Tobacco Second Hand Smoke Exposure: No service: No Physical Exam Vital Signs: Last Vital Signs Temp 97.4 F 03/11/24 11:42 Pulse 73 03/11/24 11:42 BP 159/67 H 03/11/24 11:42 Pulse Ox 96 03/11/24 11:42 Oxygen Delivery Method Room Air 03/11/24 11:42 BMI result Body Mass Index 31.3 Assessment & Plan Assessment & Plan (1) Obesity (BMI 30-39.9): Code(s): E66.9 - Obesity, unspecified (2) S/P laparoscopic sleeve gastrectomy: Comment: 2012 Dr Bill [facility] [place] Code(s): Z98.84 - Bariatric surgery status Plan New plan to try to help with hunger: 8-10am Celebrate shake with 1 scoop in 8oz UAM 11am-1pm bar 2-4pm- another shake 5-8pm- bar Needs to start MVI, discussed today. RTC 2 weeks. Patient is obese and is not considered stable at this time. I spent a total of 30 minutes reviewing/updating records, examining the patient and counseling the patient on weight management as detailed above. Coding Level of Care Code Est Pt Level 4 (61209) Diagnoses Obesity (BMI 30-39.9) E66.9 S/P laparoscopic sleeve gastrectomy Z98.84
[2024-03-11 11:42] VITALS: BP 159/67; PULSE 73; TEMP 36.3; O2SAT 96; BMI 31.3
== END 2024-03-11 13:05 | disposition home or self-care (01) ==
PROVIDERS: PCP Internal Medicine; Visit Provider Physician Assistant Surgical
DX: E66.9 Obesity, unspecified (principal); Z68.31 Body mass index [BMI] 31.0-31.9, adult; Z90.3 Acquired absence of stomach [part of]; Z98.84 Bariatric surgery status
CPT/HCPCS: 99024

== ENCOUNTER → 2024-03-11 11:18 | Outpatient (BNVA) | payer OTHER, SELFPAY | PROVIDERS: PCP Internal Medicine; Visit Provider Physician Assistant Surgical | DX: E66.9 Obesity, unspecified (principal); Z98.84 Bariatric surgery status; Z68.31 Body mass index [BMI] 31.0-31.9, adult | CPT/HCPCS: 99212 ==

== ENCOUNTER 2024-03-25 13:28 | Outpatient (AMB) | payer OTHER, SELFPAY ==
--- NOTE | 2024-03-25 13:30 | MHC.OFFVISWM ---
VS Expanded 03/25/24 13:37 BP 112/75 Blood Pressure Location Rt brachial Blood Pressure Position Sitting Pulse 82 Pulse Source Pulse Oximeter Temp 96.7 F L Temperature Source Tympanic Pulse Oximetry 100 Oxygen Delivery Method Room Air Height 4 ft 10 in Weight 147 lb 3.2 oz BMI 30.8 Body Fat % 39.7 Body Fat Mass 58.4 Fat Free Mass 88.6 Visceral Fat Rating 9.0 Body Water % 42.9 Body Water Mass 63.0 Muscle Mass/Score 84.0 Basal Metabolic Rate/Score 1,245 Intake Visit Reasons: (OV) PO LSG 02/17/24 Deckhand Clam Dredge Required: Yes Allergies No Known Allergies Allergy (Verified 03/25/24 13:37) Medication List - Last Reconciled 03/25/24 by JOLENE Price docusate sodium (Colace) 100 mg PO DAILY 90 days magnesium hydroxide (Milk of Magnesia) 10 mL PO DAILY ondansetron 4 mg PO Q12H pantoprazole 40 mg PO DAILY sucralfate 10 mL PO BID HPI Comments Details: This?is a?48?yo female who is s/p LSG 02/17/2024. Presents for 5 week post op visit. Weight at last visit on 03/11/2024 was 149.8 pounds with a BMI of 31.3, weight today is 147.2 pounds, representing a 2.6 pound weight loss with a BMI today of 30.7.? No complaints of nausea, emesis, abdominal pain or reflux. Having some constipation. Pt feels tired and depressed. Spoke to doctor and feels he used a harsh word which upset her. However she is pleased that her body fat levels have decreased. Had a little orange juice mixed with water last week when she was feeling weak. Present meal plan includes: 8-10am Celebrate shake with 1 scoop in 8oz UAM 11am-1pm bar (Pure or Celebrate) 2-4pm- another shake 5-8pm- bar MVI Exercise routine includes: treadmill 5x/week for 350 calories- now going for walks outside [facility] Medical History (Updated 03/03/24 @ 00:02 by Background Daemon) BMI 37.0-37.9, adult BMI 35.0-35.9,adult RUQ abdominal tenderness H. pylori infection Diabetes Obstructive sleep apnea on CPAP Depression GERD (gastroesophageal reflux disease) Sleep apnea Non-insulin dependent type 2 diabetes mellitus Surgical History (Updated 03/25/24 @ 13:38 by JOLENE Price) Status post repair of paraesophageal diaphragmatic hernia S/P abdominoplasty S/P laparoscopic sleeve gastrectomy Hx of cervical spine surgery Hx of hysterectomy Hx of section Family History Mother Renal failure Diabetes Hypertension Father No problems noted. Brother Asthma Social History Household Members: Children Household Members Other:: son Housing: House Are you a primary long term care phlebotomist to a significant other at home: No Do you presently have visiting nurse or other home services: No Alcohol intake: former Patient Tobacco Use Status: Never used Tobacco Second Hand Smoke Exposure: No service: No Assessment & Plan Assessment & Plan (1) Obesity (BMI 30-39.9): Code(s): E66.9 - Obesity, unspecified Category: Medical (2) S/P laparoscopic sleeve gastrectomy: Code(s): Z98.84 - Bariatric surgery status Category: Surgical Plan New meal plan as pt would like to start solid proteins: 8-10am Celebrate shake with 1 scoop in 8oz UAM 11am-1pm bar (Pure or Celebrate) 2-4pm- another shake 5pm- 2 forkfuls solid protein like scrambled egg, GY or CC; can advance to soft meats if these go well 6-8pm- bar If pt walks outside for exercise must track calories burned- her family member is showing her how to do this. Fiber rx for constipation. RTC 1 month. Patient is obese and is not considered stable at this time. I spent a total of 30 minutes reviewing/updating records, examining the patient and counseling the patient on weight management as detailed above. Medications: New inulin 2 grams PO DAILY 90 tabs 3RF
[2024-03-25 13:37] VITALS: BP 112/75; PULSE 82; TEMP 35.9; O2SAT 100; BMI 30.8
== END 2024-03-25 14:05 | disposition home or self-care (01) ==
PROVIDERS: PCP Internal Medicine; Visit Provider Physician Assistant Surgical
DX: E66.9 Obesity, unspecified (principal); Z68.30 Body mass index [BMI] 30.0-30.9, adult; Z90.3 Acquired absence of stomach [part of]; Z98.84 Bariatric surgery status
CPT/HCPCS: 99024

== ENCOUNTER → 2024-03-25 13:28 | Outpatient (BNVA) | payer OTHER, SELFPAY | PROVIDERS: PCP Internal Medicine; Visit Provider Physician Assistant Surgical | DX: E66.9 Obesity, unspecified (principal); Z68.30 Body mass index [BMI] 30.0-30.9, adult; Z98.84 Bariatric surgery status | CPT/HCPCS: 99212 ==

== ENCOUNTER 2024-06-15 13:03 | Outpatient (AMB) | payer OTHER, SELFPAY ==
--- NOTE | 2024-06-15 12:57 | MHC.OFFVISWM ---
VS Expanded 06/15/24 13:08 Height 4 ft 10 in Weight 139 lb BMI 29.0 Intake Visit Reasons: (TV) PO LSG 02/17/24 Cloth Roll Winder Required: Yes Allergies No Known Allergies Allergy (Verified 03/25/24 13:37) Medication List - Last Reconciled 06/15/24 by JOLENE Price docusate sodium (Colace) 100 mg PO DAILY 90 days inulin 2 grams PO DAILY magnesium hydroxide (Milk of Magnesia) 10 mL PO DAILY sennosides (Senokot) 8.6 mg PO DAILY PRN HPI Comments Details: This?is a?48?yo female who is s/p LSG 02/17/2024. Presents for 4 month post op visit. Weight at last visit on 03/25/2024 was 147.2 pounds with a BMI of 30.8, weight today is 139 pounds, representing a 8.2 pound weight loss with a BMI today of 29.? No complaints of emesis, abdominal pain or reflux, or constipation. Having some nausea with certain foods like red meats. Helping to take care of her mother who has been sick. Present meal plan includes: 8-10am Celebrate shake with 1 scoop in 8oz UAM 11am-1pm bar (Pure or Celebrate) 2-4pm- another shake 5pm- 2 forkfuls solid protein like scrambled egg, GY or CC; can advance to soft meats if these go well 6-8pm- bar MVI pt has been having oatmeal for breakfast at lunchtime will have a protein shake seafood for dinner- problems with red meat Exercise routine includes: walking outdoors most days [facility] Medical History (Updated 06/15/24 @ 13:19 by JOLENE Price) BMI 37.0-37.9, adult BMI 35.0-35.9,adult RUQ abdominal tenderness H. pylori infection Diabetes Obstructive sleep apnea on CPAP Depression GERD (gastroesophageal reflux disease) Sleep apnea Non-insulin dependent type 2 diabetes mellitus Surgical History (Updated 03/25/24 @ 13:38 by JOLENE Price) Status post repair of paraesophageal diaphragmatic hernia S/P abdominoplasty S/P laparoscopic sleeve gastrectomy Hx of cervical spine surgery Hx of hysterectomy Hx of section Family History Mother Renal failure Diabetes Hypertension Father No problems noted. Brother Asthma Social History Household Members: Children Household Members Other:: son Housing: House Are you a primary care management assistant to a significant other at home: No Do you presently have visiting nurse or other home services: No Alcohol intake: former Patient Tobacco Use Status: Never used Tobacco Second Hand Smoke Exposure: No service: No Telehealth Telehealth Telehealth Platform: Telephone Location of provider rendering services: practice address Location of patient: other Patient Identification confirmed using: Name, : Yes Telehealth method: voice only Patient verbally consented to treatment: Yes Patient verbally consented to billing insurance company: Yes Patient informed of any privacy concerns related to visit: Yes Minutes spent on Phone/Video with Pt.: 15 Assessment & Plan Assessment & Plan (1) Overweight: Code(s): E66.3 - Overweight Category: Medical (2) S/P laparoscopic sleeve gastrectomy: Code(s): Z98.84 - Bariatric surgery status Category: Medical Plan Discussed appropriate pace of eating and drinking with pt, avoiding foods with heavy textures. Suggested stopping oatmeal for breakfast and replacing with high protein option such as preferably another shake or can have bulgarian yogurt if she wants something solid. 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 RTC 2 months for 6 month appt. I spent a total of 30 minutes reviewing/updating records, examining the patient and counseling the patient on weight management as detailed above. Medications: New pantoprazole 40 mg PO DAILY 90 tabs 0RF
[2024-06-15 13:08] VITALS: BMI 29.0
== END 2024-06-15 13:22 | disposition home or self-care (01) ==
LOC: HO.HBS 13:03
PROVIDERS: PCP Internal Medicine; Visit Provider Physician Assistant Surgical
DX: E66.3 Overweight (principal); Z68.29 Body mass index [BMI] 29.0-29.9, adult; Z90.3 Acquired absence of stomach [part of]; Z98.84 Bariatric surgery status
CPT/HCPCS: 99214; G2211

== ENCOUNTER → 2024-06-15 13:03 | Outpatient (BNVA) | payer OTHER, SELFPAY | PROVIDERS: PCP Internal Medicine; Visit Provider Physician Assistant Surgical ==

== ENCOUNTER 2024-08-23 11:41 | Outpatient (AMB) | payer OTHER, SELFPAY ==
--- NOTE | 2024-08-23 11:46 | MHC.OFFVISWM ---
VS Expanded 08/23/24 11:56 BP 118/73 Blood Pressure Location Rt brachial Blood Pressure Position Sitting Pulse 73 Pulse Source Pulse Oximeter Temp 97.0 F Temperature Source Temporal Artery Scan Pulse Oximetry 100 Oxygen Delivery Method Room Air Height 4 ft 10 in Weight 138 lb 12.8 oz BMI 29.0 Body Fat % 38.3 Body Fat Mass 53.2 Fat Free Mass 85.6 Visceral Fat Rating 8.0 Body Water % 43.9 Body Water Mass 60.8 Muscle Mass/Score 81.2 Basal Metabolic Rate/Score 1,200 Intake Visit Reasons: (OV) PO LSG 02/17/24 Alteration Specialist Required: Yes Alteration Specialist Name: Abdelrahman [id number] Information Interpreted: clinical only Allergies No Known Allergies Allergy (Verified 08/23/24 11:52) Medication List - Last Reconciled 08/23/24 by JOLENE Price docusate sodium (Colace) 100 mg PO DAILY 90 days inulin 2 grams PO DAILY magnesium hydroxide (Milk of Magnesia) 10 mL PO DAILY pantoprazole 40 mg PO DAILY sennosides (Senokot) 8.6 mg PO DAILY PRN HPI Comments Details: This?is a?49?yo female who is s/p LSG 02/17/2024. Presents for 6 month post op visit. Weight at last visit on 06/15/2024 was 139 pounds with a BMI of 29, weight today is 138.8 pounds.? No complaints of nausea, emesis, abdominal pain or reflux, or constipation. Pt feels frustrated by weight stagnancy. Sometimes feels like solid foods get stuck and has trouble sitting while eating, has had a few episodes of vomiting slime . Present meal plan includes: 1 shake 2 bars 1 meal of usually fish/seafood- problems with red meat MVI reports some snacking on cookies, chips- attributes this to anxiety, feels like she has surges of anxiety that makes her want to snack on high sugar foods Exercise routine includes: walking outdoors most days - 3x/week but recognizes this is not enough [facility] Medical History (Updated 06/15/24 @ 13:19 by JOLENE Price) BMI 37.0-37.9, adult BMI 35.0-35.9,adult RUQ abdominal tenderness H. pylori infection Diabetes Obstructive sleep apnea on CPAP Depression GERD (gastroesophageal reflux disease) Sleep apnea Non-insulin dependent type 2 diabetes mellitus Surgical History Status post repair of paraesophageal diaphragmatic hernia S/P abdominoplasty S/P laparoscopic sleeve gastrectomy Hx of cervical spine surgery Hx of hysterectomy Hx of section Family History Mother Renal failure Diabetes Hypertension Father No problems noted. Brother Asthma Social History Household Members: Children Household Members Other:: son Housing: House Are you a primary healthcare consulting manager to a significant other at home: No Do you presently have visiting nurse or other home services: No Alcohol intake: former Patient Tobacco Use Status: Never used Tobacco Second Hand Smoke Exposure: No service: No Physical Exam Vital Signs: Last Vital Signs Temp 97.0 F 08/23/24 11:56 Pulse 73 08/23/24 11:56 BP 118/73 08/23/24 11:56 Pulse Ox 100 08/23/24 11:56 Oxygen Delivery Method Room Air 08/23/24 11:56 BMI result Body Mass Index 29.0 Assessment & Plan Assessment & Plan (1) Overweight: Code(s): E66.3 - Overweight Category: Medical (2) S/P laparoscopic sleeve gastrectomy: Code(s): Z98.84 - Bariatric surgery status Category: Surgical Plan Pt's base meal plan is fine but she is admittedly snacking on high carb/sugar foods. Suggested she discuss her feelings of anxiety with PCP, also offered appt with Nancy for coping techniques when she feels anxious and wants to eat. Labs ordered. Pantoprazole refilled per pt request. Discussed appropriate pace of eating, cutting up protein bars into pieces and eating slowly. RTC 3 months. I spent a total of 30 minutes reviewing/updating records, examining the patient and counseling the patient on weight management as detailed above. Orders: Orders Insulin Today Z98.84 - Bariatric surgery status Complete Blood Count Auto Diff Today Z98.84 - Bariatric surgery status Lipid Panel Today Z98.84 - Bariatric surgery status Zinc Today Z98.84 - Bariatric surgery status C Reactive Protein Today Z98.84 - Bariatric surgery status TSH reflex Free T4 Today Z98.84 - Bariatric surgery status Vitamin D 25-OH Total Today Z98.84 - Bariatric surgery status Hemoglobin A1c Today Z98.84 - Bariatric surgery status IRON PROFILE Today Z98.84 - Bariatric surgery status Comprehensive Met. Panel Today Z98.84 - Bariatric surgery status Vitamin B12 and Folate Today Z98.84 - Bariatric surgery status Vitamin B1 Today Z98.84 - Bariatric surgery status Vitamin A Today Z98.84 - Bariatric surgery status Ferritin Today Z98.84 - Bariatric surgery status Medications: Refilled pantoprazole 40 mg PO DAILY 90 tabs 3RF
[2024-08-23 11:56] VITALS: BP 118/73; PULSE 73; TEMP 36.1; O2SAT 100; BMI 29.0
== END 2024-08-23 12:27 | disposition home or self-care (01) ==
PROVIDERS: PCP Internal Medicine; Visit Provider Physician Assistant Surgical
DX: E66.3 Overweight (principal); Z68.29 Body mass index [BMI] 29.0-29.9, adult; Z90.3 Acquired absence of stomach [part of]; Z98.84 Bariatric surgery status
CPT/HCPCS: 99214

== ENCOUNTER → 2024-08-23 11:41 | Outpatient (BNVA) | payer OTHER, SELFPAY | PROVIDERS: PCP Internal Medicine; Visit Provider Physician Assistant Surgical | DX: E66.3 Overweight (principal); Z98.84 Bariatric surgery status; Z68.29 Body mass index [BMI] 29.0-29.9, adult | CPT/HCPCS: 99212 ==

== ENCOUNTER 2025-02-22 13:20 | Outpatient (AMB) | payer OTHER, SELFPAY ==
--- NOTE | 2025-02-22 13:39 | A.OFFVIS_ITS ---
VS Expanded 02/22/25 13:52 BP 119/73 Blood Pressure Location Lt brachial Blood Pressure Position Sitting Pulse 87 Pulse Oximetry 100 Height 4 ft 10 in Weight 118 lb 12.8 oz BMI 24.8 Body Fat % 38.1 Body Fat Mass 45.2 Fat Free Mass 73.4 Visceral Fat Rating 8.0 Body Water % 44.1 Body Water Mass 52.2 Muscle Mass/Score 69.6 Basal Metabolic Rate/Score 1,052 Intake Visit Reasons: (OV) PO LSG 02/17/24 Retail Leasing Agent Required: Yes Retail Leasing Agent Name: Genie [id number] Information Interpreted: clinical only Allergies No Known Allergies Allergy (Verified 02/22/25 13:47) Medication List - Last Reconciled 02/22/25 by JOLENE Price docusate sodium (Colace) 100 mg PO DAILY 90 days inulin 2 grams PO DAILY pantoprazole 40 mg PO DAILY sennosides (Senokot) 8.6 mg PO DAILY PRN HPI Comments Details: This?is a?49 yo female who is s/p LSG 02/17/2024. Presents for 1 year post op visit. Weight at last visit on 08/23/2024 was 130.8 pounds with a BMI of 29, weight today is 118.8 pounds, representing a 12 pound weight loss with a BMI today of 24.8.? No complaints of nausea, emesis, abdominal pain or reflux, or constipation. Feels comfortable at this weight, however notes sometimes she feels depressed. Lost her mom earlier this month. Her symptoms of regurgitation are better. Some foods still cause some heartburn. Present meal plan includes: 1 shake 2 bars 1 meal of usually fish/seafood- problems with red meat MVI Exercise routine includes: walking outdoors most days - 3x/week but recognizes this is not enough Have you been diagnosed with reflux (GERD)? Score 0-5: 0=no symptoms, 1=noticeable but not bothersome (slight or occasional), 2=noticeable, bothersome but not daily, 3=bothersome and daily, 4=affects daily activities, 5=incapacitating, unable to do daily activities How bad is the heartburn: 5 Heartburn when lying down: 5 Heartburn when standing up: 4 Heartburn after meals: 5 Does heartburn change your diet: 5 Does heartburn wake you up from sleep: 5 Do you have difficulty swallowin Do you have pain with swallowin If you take medication for reflux, does this affect your daily life: 0 Total score: 33 PFSH Medical History (Updated 06/15/24 @ 13:19 by JOLENE Price) BMI 37.0-37.9, adult BMI 35.0-35.9,adult RUQ abdominal tenderness H. pylori infection Diabetes Obstructive sleep apnea on CPAP Depression GERD (gastroesophageal reflux disease) Sleep apnea Non-insulin dependent type 2 diabetes mellitus Surgical History Status post repair of paraesophageal diaphragmatic hernia S/P abdominoplasty S/P laparoscopic sleeve gastrectomy Hx of cervical spine surgery Hx of hysterectomy Hx of section Family History Mother Renal failure Diabetes Hypertension Father No problems noted. Brother Asthma Social History Household Members: Children Household Members Other:: son Housing: House Are you a primary career development facilitator to a significant other at home: No Do you presently have visiting nurse or other home services: No Alcohol intake: former Patient Tobacco Use Status: Never used Tobacco Second Hand Smoke Exposure: No service: No Assessment & Plan Assessment & Plan (1) S/P laparoscopic sleeve gastrectomy: Code(s): Z98.84 - Bariatric surgery status Category: Surgical Plan Discussed GERD triggers. She is waiting to hear back from a therapist in the community but is interested in meeting with Nancy to help address issues of emotional eating especially in light of the recent passing of her mom. Consider UGI at next visit if reflux persists. Reminded to have labs done. If at next visit pt desires, can set up maintenance meal plan. RTC 3 months.
[2025-02-22 13:52] VITALS: BP 119/73; PULSE 87; O2SAT 100; BMI 24.8
== END 2025-02-22 14:14 | disposition home or self-care (01) ==
LOC: HO.HBS 13:20
PROVIDERS: PCP Internal Medicine; Visit Provider Physician Assistant Surgical
DX: K21.9 Gastro-esophageal reflux disease without esophagitis (principal); Z90.3 Acquired absence of stomach [part of]; Z98.84 Bariatric surgery status
CPT/HCPCS: 99214; G2211

== ENCOUNTER → 2025-02-22 13:20 | Outpatient (BNVA) | payer OTHER, SELFPAY | PROVIDERS: PCP Internal Medicine; Visit Provider Physician Assistant Surgical | DX: Z98.84 Bariatric surgery status (principal) | CPT/HCPCS: 99212 ==

== ENCOUNTER 2025-02-25 09:37 | Outpatient (REF) | payer OTHER, SELFPAY ==
[2025-02-25 11:24] LABS: Hematocrit 37.3 % (37.0-47.0); Hemoglobin 12.6 g/dl (12.0-16.0); Red Blood Count 4.87 X10*6/uL (4.20-5.50)
[2025-02-25 11:25] LABS: Basophils Percent Auto 0.4 % (0-2); Eosinophils Percent Auto 0.8 % (0-4); MANUAL DIFF FLAG SCAN; Mean Corpuscular HGB Conc 33.8 g/dl (31.0-35.0); Mean Corpuscular Hemoglobin 25.9 pg (27.0-33.0); Mean Corpuscular Volume 76.6 fL (80.0-98.0); Mean Platelet Volume 9.2 fL (9.4-12.3); Monocytes Absolute Auto 0.2 X10*3/uL (0.1-1.2); Monocytes Percent Auto 8.4 % (2-11); Neutrophils Absolute Auto 1.3 x10*3/uL (2.0-8.3); Neutrophils Percent Auto 51.4 % (45-73); Platelet Count 412 X10*3/uL (160-400); Red Cell Distribution Width 12.9 % (11.0-16.0); SCAN SMEAR FLAG 1
[2025-02-25 11:26] LABS: White Blood Count 2.5 X10*3/uL (4.8-10.8)
[2025-02-25 11:52] LABS: SLIDE REVIEW VERIFIED
[2025-02-25 11:54] LABS: Estimated Average Glucose 117 mg/dL; Hemoglobin A1C 129.5572 umol/L; Hemoglobin A1c % 5.7 % (<6.0); Total Hemoglobin (HGBA1C) 3348.5275 umol/L
[2025-02-25 12:13] LABS: Alanine Aminotransferase 11 U/L (0-31); Albumin Level 4.1 g/dL (3.5-5.0); Alkaline Phosphatase 74 U/L (39-117); Anion Gap 10 (12-20); Aspartate Amino Transferase 14 U/L (5-31); Bilirubin Total 0.6 mg/dL (0.0-1.0); Blood Urea Nitrogen 11 mg/dL (9-16); C Reactive Protein 0.35 mg/dL (< or = 0.50); Calcium 9.3 mg/dL (8.4-10.2); Carbon Dioxide 26 mmol/L (22-29); Chloride 108 mmol/L (96-108); Cholesterol 157 mg/dL (<200); Estimated Glomerular Filt Rate > 60; Glucose Random 97 mg/dL (60-115); HDL Cholesterol 47 mg/dL (>40); Iron 80 mcg/dL (30-160); LDL Cholesterol Calculated 95 mg/dL (<100); Percent Iron Saturation 29 % (15-50); Potassium 4.1 mmol/L (3.3-5.1); Sodium 140 mmol/L (135-145); Total Iron Binding Capacity 279 mcg/dL (228-428); Total Protein 7.3 g/dL (6.5-8.0); Triglycerides 75 mg/dL (<150); Unsaturated Iron Binding 199 ug/dL
[2025-02-25 12:23] LABS: Ferritin 104 ng/mL (10-250); TSH reflex Free T4 < 0.01 uIU/mL (0.32-4.0); Vitamin D 25-OH Total 39.5 ng/mL (>30)
[2025-02-25 12:32] LABS: Folate 8.3 ng/mL (> or = 4.0); Vitamin B12 274 pg/mL (200-900)
[2025-02-25 12:47] LABS: Insulin 11 uU/mL (2-29)
[2025-02-25 13:09] LABS: Free T4 (Free Thyroxine) 1.66 ng/dL (0.71-1.85)
[2025-03-01 06:13] LABS: Zinc 67 mcg/dL (60-130)
[2025-03-02 18:33] LABS: Vitamin A 38 mcg/dL (38-98)
[2025-03-07 10:09] LABS: Vitamin B1 <6 nmol/L (8-30)
== END 2025-02-25 09:38 | disposition home or self-care (01) ==
LOC: HO.LAB 09:37
PROVIDERS: PCP Internal Medicine; Visit Provider Physician Assistant Surgical
DX: Z98.84 Bariatric surgery status (principal)
CPT/HCPCS: 36415; 80053; 80061; 82306; 82607; 82728; 82746; 83036; 83525; 83540; 84425; 84439; 84443; 84590; 84630; 85025; 86140

== ENCOUNTER 2025-04-18 08:06 | Outpatient (REF) | payer OTHER, SELFPAY ==
--- NOTE | ~2025-04-18 | FL_ITS ---
EXAMINATION: XR FLUOROSCOPY UPPER GI SERIES CLINICAL INFORMATION: 49-year-old female, history of prior gastric sleeve surgery, complaining of episodic dysphagia and GERD. Patient says symptoms worsening after sleeve surgery. COMPARISON: 08/07/2022. TECHNIQUE: Fluoroscopic air contrast upper GI examination was performed utilizing standard techniques with thin and thick barium and effervescent granules. Numerous spot images were obtained. Several fluoroscopic image hold cine sequences were also obtained. FINDINGS: UPPER GI SERIES: Lateral cine images of the oropharynx and hypopharynx demonstrate normal swallow mechanism with normal epiglottic inversion and soft palate elevation. No laryngeal penetration, glottic or subglottic aspiration identified. No nasopharyngeal reflux present. Hypopharyngeal structures appear normal without evidence of mass or diverticulum. There was no significant cricopharyngeal achalasia. Dual and single contrast images of the esophagus demonstrate normal caliber, contour, and mucosal pattern. No evidence of stricture, mass, or ulcerations identified. Esophageal peristalsis was notably moderately disordered. There was stasis of the barium column with numerous nonpropulsive tertiary contractions present. A small type I hiatus hernia is identified. There were numerous episodes of gastroesophageal reflux observed during the examination to the level of the thoracic inlet. Mild narrowing of the GE junction was present, unknown if postsurgical or representing mild achalasia. Dual contrast and single contrast images of the stomach demonstrated expected contour and appearance after sleeve gastrectomy. No gross mass or ulceration. Diffuse thickening of the area gastricae present, suggesting gastritis. Contrast freely passed into the gastric antrum and duodenal bulb without delay. Single and air-contrast images of the duodenal bulb demonstrate no abnormality. The duodenal sweep has a normal appearance, course, and mucosal fold appearance. FLUOROSCOPY TIME: 3 minutes, 22 seconds Number of Spot Images:9 Number of cines obtained: 13 DOSE AREA PRODUCT: 1625 uGy-m2 (microgray-meter squared) FL/FL upper GI w air IMPRESSION: 1. Moderately disordered esophageal peristalsis. 2. Small type I hiatus hernia. 3. Episodic gastroesophageal reflux to the level of the thoracic inlet. 4. Mild narrowing of the GE junction was present, unknown if postsurgical mild stricturing or representing mild achalasia. 5. Expected postoperative appearance to the stomach after sleeve gastrectomy. 6. Diffuse prominence of the gastric areae gastricae, suggestive of gastritis. Electronically signed by: Dima Martinez MD 04/18/2025 09:48 AM EDT RP
--- OUTSIDE RECORDS SUMMARY | 2025-04-18 08:09 | XMS_ITS | Continuity of Care Document ---
Author Organization [facility] Address [address] [place] [phone] Phone Care Team Providers Care Agricultural Engineer Name Role Phone Scooby Nelson MD Unavailable Unavailable Allergies, Adverse Reactions, Alerts Substance Reaction Status Criticality No Known allergies Procedures Procedure Date ROUTINE VENIPUNCTURE OFFICE/OUTPATIENT VISIT, [facility] Advance Directives Directive Yes / No Effective Date File Name No Information Encounters Encounter Description Practice Location Reason(s) For Visit Diagnoses Date Provider Providers Copied on Encounter [facility], [address] [place] [address], [id number], [place] tel:[phone] LSX No Information 2 Omar Almodovar. [address] [place] [address], [id number] [address] [place] [address], [id number], [place]. tel:[phone] OFFICE/OUTPA TIENT VISIT, [facility], [address] [place] [address], [id number], tel:[phone] LSX PregnancyPregnancy Late entry to care 1 [place] Deechauncey. [address] [place] [address], [id number] [address] [place] [address], [id number], [place]. tel:[phone] Family History Family Member Type Diagnosis Age At Onset No Information Payers Payer name Insurance type Covered alliance party ID Authoriza tion(s) Slide F - [...]
== END 2025-04-18 08:07 | disposition home or self-care (01) ==
LOC: HO.XRAY 08:06
PROVIDERS: PCP Internal Medicine; Visit Provider Physician Assistant Surgical
DX: K21.9 Gastro-esophageal reflux disease without esophagitis (principal)
CPT/HCPCS: 74246

== ENCOUNTER → 2025-04-18 08:09 | Outpatient (BNV) | payer OTHER, SELFPAY | PROVIDERS: PCP Internal Medicine; Visit Provider Radiology Diagnostic Radiology | DX: K21.9 Gastro-esophageal reflux disease without esophagitis (principal); Z98.84 Bariatric surgery status | CPT/HCPCS: 74246 ==

== ENCOUNTER 2025-05-02 09:43 | Day surgery (SDC) | payer OTHER, SELFPAY ==
--- OUTSIDE RECORDS SUMMARY | 2025-04-29 13:52 | XMS_ITS | Continuity of Care Document ---
Author Organization [facility] Address [address] [place] [phone] Phone Care Team Providers Care Child Care Attendant Name Role Phone Scooby Nelson MD Unavailable Unavailable Allergies, Adverse Reactions, Alerts Substance Reaction Status Criticality No Known allergies Procedures Procedure Date ROUTINE VENIPUNCTURE OFFICE/OUTPATIENT VISIT, [facility] Advance Directives Directive Yes / No Effective Date File Name No Information Encounters Encounter Description Practice Location Reason(s) For Visit Diagnoses Date Provider Providers Copied on Encounter [facility], [address] [place] [address], [id number], [place] tel:[phone] LSX No Information 2 Omar Almodovar. [address] [place] [address], [id number] [address] [place] [address], [id number], [place]. tel:[phone] OFFICE/OUTPA TIENT VISIT, [facility], [address] [place] [address], [id number], tel:[phone] LSX PregnancyPregnancy Late entry to care 1 [place] Deechauncey. [address] [place] [address], [id number] [address] [place] [address], [id number], [place]. tel:[phone] Family History Family Member Type Diagnosis Age At Onset No Information Payers Payer name Insurance type Covered constitution party ID Authoriza tion(s) Slide F - [...]
--- NOTE | 2025-04-29 14:09 | P.CONAN_ITS ---
Documented by User: Helena Beyer NP 04/29/25 14:13 HPI - Anesthesia Eval Consult details Narrative: 49yo F for Upper Endo Harden s/p sleeve 2023 [facility] Active Problems Active Problems: All Active Problems Overweight (Acute) Status post repair of paraesophageal diaphragmatic hernia (Acute) Diaphragmatic hernia (Acute) Intra-abdominal adhesions (Acute) S/P laparoscopic sleeve gastrectomy (Acute) Obesity (BMI 30-39.9) (Acute) Depression (Acute) GERD (gastroesophageal reflux disease) (Acute) Obstructive sleep apnea on CPAP (Acute) Non-insulin dependent type 2 diabetes mellitus (Acute) Past Medical History Medical History BMI 37.0-37.9, adult BMI 35.0-35.9,adult RUQ abdominal tenderness H. pylori infection Diabetes Obstructive sleep apnea on CPAP Depression GERD (gastroesophageal reflux disease) Sleep apnea Non-insulin dependent type 2 diabetes mellitus Family History Family History Mother Renal failure Diabetes Hypertension Father No problems noted. Brother Asthma Family history of problems with anesthesia: No Surgical History Surgical History Status post repair of paraesophageal diaphragmatic hernia S/P abdominoplasty S/P laparoscopic sleeve gastrectomy Hx of cervical spine surgery Hx of hysterectomy Hx of section History of Problems with Anesthesia: No Social History Social History Household Members: Children Household Members Other:: son Housing: House Are you a primary care process manager to a significant other at home: No Do you presently have visiting nurse or other home services: No Alcohol intake: former Patient Tobacco Use Status: Never used Tobacco Second Hand Smoke Exposure: No Advance Directives: No Advance Directives Information Provided: Yes service: No Meds Allergies Allergy/AdvReac Type Severity Reaction Status Date / Time No Known Allergies Allergy Verified 02/22/25 13:47 Exam Pertinent Lab Results Pertinent Lab Results: Laboratory Tests 02/25/25 09:53 WBC 2.5 L Hgb 12.6 Hct 37.3 Plt Count 412 H D Sodium 140 Potassium 4.1 Chloride 108 Carbon Dioxide 26 BUN 11 Creatinine 0.58 Assessment and Plan Assessment Anesthesia Assessment: Chart Reviewed Final Anesthetic Review Family History of Problems with Anesthesia: No History of Problems with Anesthesia: No Documented by User: Jeannette Luther MD 05/02/25 10:14 [facility] Past Medical History Medical History BMI 37.0-37.9, adult BMI 35.0-35.9,adult RUQ abdominal tenderness H. pylori infection Diabetes Obstructive sleep apnea on CPAP Depression GERD (gastroesophageal reflux disease) Sleep apnea Non-insulin dependent type 2 diabetes mellitus Family History Family History Mother Renal failure Diabetes Hypertension Father No problems noted. Brother Asthma Surgical History Surgical History Status post repair of paraesophageal diaphragmatic hernia S/P abdominoplasty S/P laparoscopic sleeve gastrectomy Hx of cervical spine surgery Hx of hysterectomy Hx of section Social History Social History Household Members: Children Household Members Other:: son Housing: House Are you a primary care process manager to a significant other at home: No Do you presently have visiting nurse or other home services: No Alcohol intake: former Patient Tobacco Use Status: Never used Tobacco Second Hand Smoke Exposure: No Advance Directives: No Advance Directives Information Provided: Yes service: No Meds Allergies Allergy/AdvReac Type Severity Reaction Status Date / Time No Known Allergies Allergy Verified 02/22/25 13:47 Exam Airway Mallampati Class: II TM Dist: >3cm Neck ROM: Full Heart: rrr Lungs: cta Assessment and Plan Assessment Anesthesia Assessment: Anesthesia Plan Discussed Final Anesthetic Review NPO: Yes ASA Class: III Final Preanesthetic Review: No Changes in Pt Med Stat, Meds/Allgs Chart Reviewed, Consent Obtained/Reviewed and Anes Risks/Benef Reviewed Patient Risk: Intermediate Procedure Risk: Low Anesthetic Plan Anesthetic Plan: MAC: Disposition: Standard PACU
[2025-05-02 06:44] VITALS: BMI 24.7
[2025-05-02 10:11] VITALS: BP 120/81; PULSE 69; RESP 20; TEMP 36.3; O2SAT 98; BMI 23.2
[2025-05-02] MEDS: Lactated Ringers 1,000 ML 100 ML IVCONT (10:27)
--- NOTE | 2025-05-02 11:23 | MHC.SHP ---
Pre-Procedural Eval Section A - 24 Hr Update-Section A only Date of Service: 05/02/25 The patient is an INPATIENT: No The patient has been examined within 24 hours of the surgical procedure. The History & Physical has been completed within 30 days and I have reviewed it.: Yes Section B - Complete if H&P > 30 days Chief Complaint: Postgastric surgery syndromes Details of Present Illness: GERD Relevant Family History (Specify if Yes): No Relevant Social History: None Present Medications: None Medical History: No relevant PMH History of Previous Operations: Relevant previous surgery/procedure and date(s) (Lap sleeve gastrectomy and lap sleeve gastrectomy revision and hernia repair) Allergies: Allergies Allergy/AdvReac Type Severity Reaction Status Date / Time No Known Allergies Allergy Verified 02/22/25 13:47 Review of Systems Sugical H&P ROS: Negative: Cardiovascular, Respiratory, Neurological, Psychiatric, Hem-Onc, Allergic/Immunologic, Gastrointestinal, Genitourinary, Musculoskeletal, Integumentary, Endocrine and Eyes/Ears/Nose/Throat and Yes, Specify: Constitution (Chest pain) Exam Surgical H&P Exam: Normal: HEENT, Normal: Heart, Normal: Lungs, Normal: Extremities, Normal: Abdomen, Normal: Skin and Normal: Neurological Plan Diagnosis/Plan: Unchanged (EGD with Harden to assess etiology of GERD. Risks of bleeding and perforation were discussed with the patient and she is in agreement with the plan.) I have reviewed the history and physical and performed a pertinent physical examination on my patient. No changes have occurred unless specified. Time Spent With Patient Time: Total time managing care of this patient today ____ minutes.
--- NOTE | 2025-05-02 11:53 | PM.OP ---
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 Ph.D. Edi Programmer Analyst: None ? Anesthesia: IV sedation Estimated blood loss: ?Minimal FINDINGS AND PROCEDURE: ? OPERATIVE INDICATIONS: ?The patient is a 49 year old female known to me who underwent a laparoscopic sleeve gastrectomy revision by me. The patient had remarkable weight loss so far and had a completely uneventful recovery.? The patient was doing very well but has recently been complaining of GERD and chest pain. Based on this information I recommended an upper endoscopy with Harden to evaluate the patient's symptoms. Risks and complications of the surgery were discussed with the patient in advance particularly the possibility of perforation or bleeding that may require surgical intervention. The patient understood the risks and was in agreement with the plan. ? PROCEDURE: After informed consent was obtained by the patient, the patient was ?transferred to the Operating Room and was placed in the supine position.? After successful induction of IV sedation, a mouth block was inserted and the patient was placed in the left lateral decubitus position. An upper endoscopy was performed next, the oropharynx and esophagus appeared within the normal limits. There was a small 2cm hiatal hernia. The z-line was smooth. Two biopsies were obtained from the distal esohagus 2-3 cm proximal to the GE junction and two additional biopsies from the GE junction. The sleeve was entered and it appeared to be of normal size. There was no gastritis. There was no ulcer. 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 However, the scope can pass through fairly easily to the antrum. Biopsies were obtained from the proximal sleeve as well as the distal antrum. No significant bleeding was noted from any of the biopsy sites. The scope was then advanced into the duodenum which appeared to be normal as well. At that point the duodenum ?and the stomach were decompressed and the scope was withdrawn to the GE junction. We measured 6 cm proximal from the GEJ and that was about 30cm from incisors. The scope was withdrawn from the mouth and the Harden device was introduced to 30cm from incisors. The scope was re-introduced to confirm that the probe was in the esophagus and it was. The scope was withdrawn from the patient's mouth. Suction was connected to the device and was kept on for 45sec. At that point the device was deployed without difficulty and the remaining of the device was withdrawn from the patient's mouth without difficulty. The endoscope was re-introduced and I confirmed that the device was properly deployed in the esophagus at the intended location. At that point the scope was withdrawn from the patient's mouth and the procedure was ended. The patient extubated and was transferred in stable condition to the Recovery Room for further care. I was present and performed all steps of the procedure. There were no residents to assist with this case. Lenin Fitch M.D., Ph.D. Surgeon: Brian Fitch MD Anesthesia: MAC Was an Edi Programmer Analyst used for this Procedure?: No Estimated blood loss (mL): 0 IV fluids (mL): 400 Urine output (mL): 0 (No Valadez to record output) Pathology: other (1) antrum x1, 2) proximal sleeve/gastric fundus x1, 3) EGJ x2, 4) distal esophagus x2) Condition: stable Disposition: PACU
[2025-05-02 11:55] VITALS: BP 98/53; PULSE 79; RESP 20; TEMP 36.1; O2SAT 100
[2025-05-02 12:10] VITALS: BP 130/58; PULSE 73; RESP 20; O2SAT 100
[2025-05-02 12:25] VITALS: BP 122/69; PULSE 72; RESP 18; O2SAT 100
[2025-05-02] MEDS: ondansetron HCL 4 MG/2 ML VIAL IVPUSH (12:25)
[2025-05-02 12:41] VITALS: BP 130/74; PULSE 67; RESP 16; TEMP 36.2; O2SAT 100
== END 2025-05-02 13:45 | disposition home or self-care (01) ==
PROVIDERS: PCP Internal Medicine; Visit Provider Surgery
PROC: (CPT 43239; principal; 2025-05-02 11:00)
DX: K91.1 Postgastric surgery syndromes (principal); K21.9 Gastro-esophageal reflux disease without esophagitis; R07.9 Chest pain, unspecified; K22.2 Esophageal obstruction; Z98.84 Bariatric surgery status; Z90.3 Acquired absence of stomach [part of]; K44.9 Diaphragmatic hernia without obstruction or gangrene; G47.33 Obstructive sleep apnea (adult) (pediatric); E11.9 Type 2 diabetes mellitus without complications; F32.A Depression, unspecified; Z79.899 Other long term (current) drug therapy; Z98.890 Other specified postprocedural states
CPT/HCPCS: 43239; 88305; 88313; 88342; J2405; J2704

== ENCOUNTER → 2025-05-02 09:43 | Outpatient (BNV) | payer OTHER, SELFPAY | PROVIDERS: PCP Internal Medicine; Visit Provider Surgery | DX: K44.9 Diaphragmatic hernia without obstruction or gangrene (principal); K95.89 Other complications of other bariatric procedure | CPT/HCPCS: 43239 ==

== ENCOUNTER 2025-07-27 13:41 | Outpatient (REF) | payer OTHER, SELFPAY ==
--- OUTSIDE RECORDS SUMMARY | 2011-12-09 13:08 | XMS_ITS | Continuity of Care Document ---
Author Organization [facility] Address [address] [place] [phone] Phone Care Team Providers Care Buddhist Monk Name Role Phone Scooby Nelson MD Unavailable Unavailable Allergies, Adverse Reactions, Alerts Substance Reaction Status Criticality No Known allergies Procedures Procedure Date ROUTINE VENIPUNCTURE OFFICE/OUTPATIENT VISIT, [facility] Advance Directives Directive Yes / No Effective Date File Name No Information Encounters Encounter Description Practice Location Reason(s) For Visit Diagnoses Date Provider Providers Copied on Encounter [facility], [address] [place] [address], [id number], [place] tel:[phone] LSX No Information 2 Omar Almodovar. [address] [place] [address], [id number] [address] [place] [address], [id number], [place]. tel:[phone] OFFICE/OUTPA TIENT VISIT, [facility], [address] [place] [address], [id number], tel:[phone] LSX PregnancyPregnancy Late entry to care 1 Angela Deechauncey. [address] [place] [address], [id number] [address] [place] [address], [id number], [place]. tel:[phone] Family History Family Member Type Diagnosis Age At Onset No Information Payers Payer name Insurance type Covered green party ID Authoriza tion(s) Slide F - No Active Slide 09 Social History Type Description Quantity Date Captured Comments Sex Female Smoking Status No Information Chief Complaint And Reason For Visit No Information Reason For Referral Reason For Referral No Information History Of Present Illness Encounter Date Complaint History Of Prese nt Illness No Information Functional Status Date Functional Assessmen t No Information Instructions Date Instruction Additional Infor mation No Information Assessments Type Assessment Date No Information Patient Care Teams Name Effective Dates (start - stop) Status Members No Information
[2025-07-27 14:11] LABS: MANUAL DIFF FLAG NO
[2025-07-27 14:59] LABS: Hematocrit 35.4 % (37.0-47.0); Hemoglobin 11.8 g/dl (12.0-16.0); Imm Gran Abs Auto 0.01 X10*3/uL (0.00-0.03); Imm Gran Pct Auto 0.4 % (0.0-0.4); Lymphocytes Absolute Auto 1.2 X10*3/uL (1.2-4.9); Mean Corpuscular HGB Conc 33.3 g/dl (31.0-35.0); Mean Corpuscular Hemoglobin 26.8 pg (27.0-33.0); Mean Corpuscular Volume 80.3 fL (80.0-98.0); NRBC Abs Auto 0.000 X10*3/uL (0.0-0.012); NRBC Pct Auto 0.0 /100WBC (0.0-0.2); Platelet Count 317 X10*3/uL (160-400); Red Blood Count 4.41 X10*6/uL (4.20-5.50); White Blood Count 2.7 X10*3/uL (4.8-10.8)
[2025-07-27 15:18] LABS: Hemoglobin A1C 121.5482 umol/L; Total Hemoglobin (HGBA1C) 3159.4845 umol/L
[2025-07-27 15:34] LABS: Alanine Aminotransferase 9 U/L (0-31); Albumin Level 4.4 g/dL (3.5-5.0); Alkaline Phosphatase 90 U/L (39-117); Anion Gap 9 (12-20); Aspartate Amino Transferase 22 U/L (5-31); Blood Urea Nitrogen 10 mg/dL (9-16); Calcium 8.9 mg/dL (8.4-10.2); Carbon Dioxide 28 mmol/L (22-29); Chloride 107 mmol/L (96-108); Cholesterol 177 mg/dL (<200); Estimated Glomerular Filt Rate > 60; HDL Cholesterol 58 mg/dL (>40); Iron 81 mcg/dL (30-160); Percent Iron Saturation 27 % (15-50); Potassium 3.8 mmol/L (3.3-5.1); Sodium 140 mmol/L (135-145); Total Iron Binding Capacity 296 mcg/dL (228-428); Total Protein 7.2 g/dL (6.5-8.0); Triglycerides 112 mg/dL (<150); Unsaturated Iron Binding 215 ug/dL
[2025-07-27 15:55] LABS: Ferritin 47 ng/mL (10-250)
[2025-07-27 16:11] LABS: Folate 14.0 ng/mL (> or = 4.0); Vitamin B12 482 pg/mL (200-900)
== END 2025-07-27 13:42 | disposition home or self-care (01) ==
LOC: HO.LAB 13:41
PROVIDERS: PCP Internal Medicine; Visit Provider Physician Assistant Surgical
DX: Z98.84 Bariatric surgery status (principal)
CPT/HCPCS: 36415; 80053; 80061; 82306; 82607; 82728; 82746; 83036; 83525; 83540; 84425; 84443; 84590; 84630; 85025; 86140

== ENCOUNTER 2025-08-02 12:28 | Outpatient (AMB) | payer OTHER, SELFPAY ==
--- OUTSIDE RECORDS SUMMARY | 2011-12-09 13:08 | XMS_ITS | Continuity of Care Document ---
Author Organization [facility] Address [address] [place] [phone] Phone Care Team Providers Care Ocean Export Coordinator Name Role Phone Scooby Nelson MD Unavailable Unavailable Allergies, Adverse Reactions, Alerts Substance Reaction Status Criticality No Known allergies Procedures Procedure Date ROUTINE VENIPUNCTURE OFFICE/OUTPATIENT VISIT, [facility] Advance Directives Directive Yes / No Effective Date File Name No Information Encounters Encounter Description Practice Location Reason(s) For Visit Diagnoses Date Provider Providers Copied on Encounter [facility], [address] [place] [address], [id number], [place] tel:[phone] LSX No Information 2 Omar Almodovar. [address] [place] [address], [id number] [address] [place] [address], [id number], [place]. tel:[phone] OFFICE/OUTPA TIENT VISIT, [facility], [address] [place] [address], [id number], tel:[phone] LSX PregnancyPregnancy Late entry to care 1 Linden Deechauncey. [address] [place] [address], [id number] [address] [place] [address], [id number], [place]. tel:[phone] Family History Family Member Type Diagnosis Age [...]
--- NOTE | 2025-08-02 12:30 | MHC.OFFVISWM ---
VS Expanded 08/02/25 12:53 BP 122/82 Blood Pressure Location Rt brachial Blood Pressure Position Sitting Pulse 69 Pulse Source Pulse Oximeter Temp 97.0 F Temperature Source Temporal Artery Scan Pulse Oximetry 100 Oxygen Delivery Method Room Air Height 4 ft 10 in Weight 115 lb 9.6 oz BMI 24.2 Body Fat % 29.2 Body Fat Mass 33.8 Fat Free Mass 81.8 Visceral Fat Rating 5.0 Body Water % 50.4 Body Water Mass 58.2 Muscle Mass/Score 77.6 Basal Metabolic Rate/Score 1,125 Intake Visit Reasons: (OV) PO LSG 02/17/24 Descriptive Catalog Librarian Required: Yes Descriptive Catalog Librarian Name: Eddie Parkinson- [id number] Allergies No Known Allergies Allergy (Verified 08/02/25 12:37) Medication List - Last Reconciled 08/02/25 by JOLENE Price docusate sodium (Colace) 100 mg PO DAILY 90 days inulin 2 grams PO DAILY methimazole 5 mg PO DAILY ondansetron 4 mg PO Q8H PRN 4 days pantoprazole 40 mg PO BID sennosides (Senokot) 8.6 mg PO DAILY PRN sucralfate 10 mL PO BID thiamine HCl (vitamin B1) 100 mg PO DAILY vitamin A acetate 3,000 mcg PO DAILY HPI Comments Details: This?is a 49 yo F who is s/p LSG 02/17/2024. Also underwent EGD with Harden in May. Pt reports ongoing heartburn, particularly at night. In regards to pain, has improved. Currently on pantoprazole, no carafate. Reports she did not get a report from Harden study. She tried to speak to Dr Aguilar but had difficulty connecting with him prior to his vacation. I confirmed this on her phone where she had texted him but had not received a response. Also reports hair loss. [facility] Medical History BMI 37.0-37.9, adult BMI 35.0-35.9,adult RUQ abdominal tenderness H. pylori infection Diabetes Obstructive sleep apnea on CPAP Depression GERD (gastroesophageal reflux disease) Sleep apnea Non-insulin dependent type 2 diabetes mellitus Surgical History Status post repair of paraesophageal diaphragmatic hernia S/P abdominoplasty S/P laparoscopic sleeve gastrectomy Hx of cervical spine surgery Hx of hysterectomy Hx of section Family History Mother Renal failure Diabetes Hypertension Father No problems noted. Brother Asthma Social History Household Members: Children Household Members Other:: son Housing: House Are you a primary care director to a significant other at home: No Do you presently have visiting nurse or other home services: No Alcohol intake: former Patient Tobacco Use Status: Never used Tobacco Second Hand Smoke Exposure: No service: No Assessment & Plan Assessment & Plan (1) S/P laparoscopic sleeve gastrectomy: Code(s): Z98.84 - Bariatric surgery status Category: Medical (2) GERD (gastroesophageal reflux disease): Code(s): K21.9 - Gastro-esophageal reflux disease without esophagitis Category: Medical Plan I will speak with Dr Aguilar regarding a plan for her. In the meantime will increase PPI and start carafate. Reviewed reflux triggers. Labs reviewed, vit A supplement sent. Pt currently on methimazole for thyroid. Ok to take biotin for hair loss. RTC 3-4 months. Medications: New vitamin A acetate 3,000 mcg PO DAILY 90 tabs 3RF sucralfate 10 mL PO BID 414 mL 3RF Changed From pantoprazole 40 mg PO DAILY 90 tabs 3RF To pantoprazole 40 mg PO BID 90 tabs 3RF
[2025-08-02 12:53] VITALS: BP 122/82; PULSE 69; TEMP 36.1; O2SAT 100; BMI 24.2
== END 2025-08-02 13:21 | disposition home or self-care (01) ==
LOC: HO.HBS 12:29
PROVIDERS: PCP Internal Medicine; Visit Provider Physician Assistant Surgical
DX: K21.9 Gastro-esophageal reflux disease without esophagitis (principal); Z98.84 Bariatric surgery status
CPT/HCPCS: 99213; G2211

== ENCOUNTER → 2025-08-02 12:28 | Outpatient (BNVA) | payer OTHER, SELFPAY | PROVIDERS: PCP Internal Medicine; Visit Provider Physician Assistant Surgical | DX: Z98.84 Bariatric surgery status (principal); K21.9 Gastro-esophageal reflux disease without esophagitis | CPT/HCPCS: 99212 ==

== ENCOUNTER 2025-11-16 11:22 | Outpatient (AMB) | payer OTHER, SELFPAY ==
--- NOTE | 2025-11-16 11:28 | A.OFFVIS_ITS ---
VS Expanded 11/16/25 11:41 BP 142/79 H Blood Pressure Location Rt brachial Blood Pressure Position Sitting Pulse 78 Pulse Source Pulse Oximeter Temp 96.6 F L Temperature Source Temporal Artery Scan Pulse Oximetry 98 Oxygen Delivery Method Room Air Height 4 ft 10 in Weight 118 lb 6.4 oz BMI 24.7 Body Fat % 31.3 Body Fat Mass 37.0 Fat Free Mass 81.4 Visceral Fat Rating 6.0 Body Water % 48.8 Body Water Mass 57.8 Muscle Mass/Score 77.2 Basal Metabolic Rate/Score 1,124 Intake Visit Reasons: (OV) PO LSG 02/17/24 Machine Wood Sander Required: Yes Machine Wood Sander Name: Millie Fuentes [id number] Allergies No Known Allergies Allergy (Verified 11/16/25 11:43) Medication List - Last Reconciled 11/16/25 by JOLENE Price docusate sodium (Colace) 100 mg PO DAILY 90 days inulin 2 grams PO DAILY levothyroxine 88 mcg PO DAILY ondansetron 4 mg PO Q8H PRN 4 days pantoprazole 40 mg PO BID polyethylene glycol 3350 (Gavilax) grams PO sennosides (Senokot) 8.6 mg PO DAILY PRN sucralfate 10 mL PO BID thiamine HCl (vitamin B1) 100 mg PO DAILY vitamin A acetate 3,000 mcg PO DAILY HPI Comments Details: This is a 49 yo F who is s/p LSG 02/17/2024. Also underwent EGD with Harden in May. At last visit- Pt reports ongoing heartburn, particularly at night. In regards to pain, has improved. Currently on pantoprazole, no carafate. Reports she did not get a report from Harden study. She tried to speak to Dr Aguilar but had difficulty connecting with him prior to his vacation. I confirmed this on her phone where she had texted him but had not received a response. Also reports hair loss. Today- carafate was restarted at last visit, pt continues on PPI. Had thyroidectomy at [facility]. This has been a difficult recovery for her. Her reflux remains noticeable. Taking pantoprazole BID. Also back on carafate which did help for a time up until thyroid surgery. She requests trying a different medication for reflux. She reports constipation, was given Linzess by PCP but finds it did not help for what sounds like several days. Meal plan: has been on just protein shakes since surgery as swallowing is difficult. Prior to this was also having one meal a day. Uses Celebrate products, 2 shakes per day. [facility] Medical History BMI 37.0-37.9, adult BMI 35.0-35.9,adult RUQ abdominal tenderness H. pylori infection Diabetes Obstructive sleep apnea on CPAP Depression GERD (gastroesophageal reflux disease) Sleep apnea Non-insulin dependent type 2 diabetes mellitus Surgical History Status post repair of paraesophageal diaphragmatic hernia S/P abdominoplasty S/P laparoscopic sleeve gastrectomy Hx of cervical spine surgery Hx of hysterectomy Hx of section Family History Mother Renal failure Diabetes Hypertension Father No problems noted. Brother Asthma Social History Household Members: Children Household Members Other:: son Housing: House Are you a primary animal caretaker to a significant other at home: No Do you presently have visiting nurse or other home services: No Alcohol intake: former Patient Tobacco Use Status: Never used Tobacco Second Hand Smoke Exposure: No service: No Physical Exam Vital Signs: Last Vital Signs Temp 96.6 F L 11/16/25 11:41 Pulse 78 11/16/25 11:41 BP 142/79 H 11/16/25 11:41 Pulse Ox 98 11/16/25 11:41 Oxygen Delivery Method Room Air 11/16/25 11:41 BMI result Body Mass Index 24.7 Assessment & Plan Assessment & Plan (1) S/P laparoscopic sleeve gastrectomy: Code(s): Z98.84 - Bariatric surgery status Category: Surgical (2) GERD (gastroesophageal reflux disease): Code(s): K21.9 - Gastro-esophageal reflux disease without esophagitis Category: Medical Plan GI consult for ? repeat colonoscopy, management of chronic constipation. Change pantoprazole to esomeprazole per pt request. Refill carafate. RTC 4mo. Medications: New esomeprazole magnesium 40 mg PO DAILY 120 caps 3RF Refilled sucralfate 10 mL PO BID 414 mL 6RF Discontinued pantoprazole Discontinued Reason: Doctor's Order 40 mg PO BID 90 tabs 3RF
[2025-11-16 11:41] VITALS: BP 142/79; PULSE 78; TEMP 35.9; O2SAT 98; BMI 24.7
== END 2025-11-16 13:19 | disposition home or self-care (01) ==
LOC: HO.HBS 11:23
PROVIDERS: PCP Internal Medicine; Visit Provider Physician Assistant Surgical
DX: K21.9 Gastro-esophageal reflux disease without esophagitis (principal); Z90.3 Acquired absence of stomach [part of]; Z98.84 Bariatric surgery status
CPT/HCPCS: 99214; G2211

== ENCOUNTER → 2025-11-16 11:22 | Outpatient (BNVA) | payer OTHER, SELFPAY | PROVIDERS: PCP Internal Medicine; Visit Provider Physician Assistant Surgical | DX: K21.9 Gastro-esophageal reflux disease without esophagitis (principal); K59.09 Other constipation; Z98.84 Bariatric surgery status | CPT/HCPCS: 99212 ==